=== PATIENT | female | born 1980 | race Hispanic/Latino ===

== ENCOUNTER 2019-07-26 11:19 | Outpatient (RCR) | payer OTHER, SELFPAY ==
[2019-07-26 12:44] LABS: Basophils Percent Auto 0.9 % (0.2-1.2); Eosinophils Absolute Auto 0.1 K/mm3 (0-0.3); Eosinophils Percent Auto 2.5 % (0-4.4); Hematocrit 38.7 % (37.0-47.0); Hemoglobin 12.6 g/dL (12.0-15.0); Immature Granulocyte Absolute 0.01 K/mm3 (0.00-0.031); Immature Granulocyte Percent A 0.2 % (0-0.5); Lymphocytes Absolute Auto 2.03 K/mm3 (0.9-3.2); Lymphocytes Percent Auto 46.5 % (18.3-44.2); Mean Corpuscular HGB Conc 32.6 g/dl (32-36); Mean Corpuscular Hemoglobin 29.6 pg (26-34); Mean Corpuscular Volume 90.8 fl (80-100); Mean Platelet Volume 11.8 fl (7.4-10.4); Monocytes Absolute Auto 0.6 K/mm3 (0.1-0.6); Monocytes Percent Auto 12.8 % (2.6-8.5); Neutrophils Absolute Auto 1.6 K/mm3 (1.3-6.7); Neutrophils Percent Auto 37.1 % (45.5-73.1); Platelet Count Result 219 k/mm3 (150-375); Red Blood Count 4.26 M/mm3 (4.2-5.4); White Blood Count 4.4 K/mm3 (4.5-10.0)
== END 2019-10-24 23:59 | disposition home or self-care (01) ==
LOC: ANHLAB 11:19
PROVIDERS: Visit Provider Obstetrics & Gynecology Gynecology
DX: D50.9 Iron deficiency anemia, unspecified (principal)
CPT/HCPCS: 36415; 85025

== ENCOUNTER 2020-02-28 01:11 | Outpatient (CLI) | payer OTHER, SELFPAY ==
[2020-02-28 19:01] LABS: SARS-CoV-2 RNA PCR Negative
== END 2020-02-28 01:12 | disposition home or self-care (01) ==
LOC: ANHCOVIDDT 01:12
PROVIDERS: PCP Physician Assistant; Visit Provider Surgery
DX: Z01.818 Encounter for other preprocedural examination (principal); Z11.59 Encounter for screening for other viral diseases
CPT/HCPCS: 87635; C9803; U0003

== ENCOUNTER 2020-02-28 08:40 | Outpatient (CLI) | payer OTHER, SELFPAY ==
[2020-02-28 08:57] LABS: Hematocrit 40.9 % (37.0-47.0); Hemoglobin 14.3 g/dL (12.0-15.0)
[2020-02-28 09:14] LABS: Alanine Aminotransferase 13 U/L (4-35); Albumin Level 4.4 g/dL (3.5-5.1); Alkaline Phosphatase 63 U/L (38-126); Amylase 186 U/L (30-110); Aspartate Amino Transferase 27 U/L (14-36); Bilirubin,Total 0.3 mg/dL (0.2-1.3); Blood Urea Nitrogen 8 mg/dL (7-17); Carbon Dioxide 29 mmol/L (22-30); Chloride 102 mmol/L (98-107); Estimated Glomerular Filt Rate > 60; Glucose 92 mg/dL (65-105); Lipase 113 U/L (23-300); Potassium 4.5 mmol/L (3.4-5.0); Sodium 138 mmol/L (137-145)
== END 2020-02-28 08:41 | disposition home or self-care (01) ==
PROVIDERS: Anesthesiology; PCP Physician Assistant; Visit Provider Surgery
DX: Z01.818 Encounter for other preprocedural examination (principal); K80.20 Calculus of gallbladder without cholecystitis without obstruction; Z86.2 Personal history of diseases of the blood and blood-forming organs and certain disorders involving the immune mechanism
CPT/HCPCS: 36415; 80053; 82150; 82248; 83690; 85014; 85018; 86850; 86900; 86901; 87635; C9803; U0003

== ENCOUNTER 2020-03-01 01:04 | Day surgery (SDC) | payer OTHER, SELFPAY ==
[2020-02-19 16:09] VITALS: BMI 21.4
[2020-03-01] VITALS (9 sets, daily range): BP systolic 115–127; BP diastolic 58–82; PULSE 69–95; RESP 14–18; TEMP 36.6–36.9; O2SAT 97–100
[2020-03-01] MEDS: LACTATED RINGERS 1,000 ML 30 ML IV CONT ×2 (10:45→13:25)
[2020-03-01] MEDS: KETOROLAC 15 MG/ML VIAL (*BKC) IV PUSH (11:00)
--- NOTE | 2020-03-01 11:24 | PM.IMHP ---
H&P: HPI History of Present Illness Chief complaint: symptomatic cholelithiasis Narrative: Cecily Leonardo is a 39 year old female presents for lap benedict. She has had abdominal pain and u/s 1 year ago showed cholelithiasis. Review of Systems Review of Systems: All systems reviewed & are unremarkable except as noted in HPI and below Constitutional: Constitutional: Denies chills, Denies fever(s), Denies headache(s) and Denies weight loss Eyes: Eyes: Denies change in vision ENT: Denies dizziness, Denies headache(s), Denies neck mass and Denies throat swelling Cardiovascular: Cardiovascular: Denies chest pain, Denies lightheadedness and Denies dyspnea Respiratory: Respiratory: Denies cough, Denies dyspnea and Denies wheezing Gastrointestinal: Gastrointestinal: Denies abdominal pain, Denies change in bowel habits, Denies nausea and Denies vomiting Genitourinary: Genitourinary: Denies hematuria and Denies dysuria Musculoskeletal: Musculoskeletal: Reports as per HPI Integumentary/Breasts: Skin/Breast: Reports as per HPI Neurologic: Denies dizziness and Denies headache(s) Allergic/Immunologic: Allergic/Immunologic: Denies throat swelling and Denies wheezing PMF Past Medical History Medical History Diabetes GERD (gastroesophageal reflux disease) Thyroid disease Family History Family History Mother Hypertension Sibling Family history of thyroid problem Other Family history of allergic disorder Family history of anemia Social History Social History Smoking status: Never smoker Second hand tobacco smoke exposure: No Alcohol intake: current Alcohol use details: occasional Substance use: never Living arrangements: with family Additional occupation/education comments: stay at home mom Spiritual care concerns: No Meds Home Medications and Allergies Home Medications Medication Instructions Recorded Confirmed Type levothyroxine 50 mcg tablet 50 mcg PO DAILY 09/27/19 03/01/20 History omeprazole 40 mg capsule,delayed 40 mg PO DAILY 01/09/20 03/01/20 History release ranitidine HCl 150 mg tablet 150 mg PO DAILY 01/09/20 03/01/20 History norethindrone-e.estradiol-iron 1 tablet PO DAILY 02/19/20 03/01/20 History [Aurovela 24 Fe] Allergies Allergy/AdvReac Type Severity Reaction Status Date / Time No Known Allergies Allergy Verified 03/01/20 11:16 Vital Signs Vital Signs - 24 hr 03/01/20 11:18 Temperature 36.9 C Pulse Rate 95 Respiratory Rate 18 Blood Pressure 127/82 Pulse Oximetry 100 Exam Const: General: no acute distress and alert Orientation/consciousness: patient oriented x3 HENMT: Head: normocephalic and atraumatic Ears: hearing grossly normal bilaterally General nose exam: Normal nares present Mouth: Yes Normal oral and palatal mucosa present Eyes: Periorbital: periorbital findings normal Sclera: sclerae normal EOM: EOMs intact bilaterally Neck: Neck: normal visual inspection, no lymphadenopathy and trachea midline Chest: Chest palpation & inspection: normal inspection of the chest Resp: Effort & Inspection: normal respiratory effort Auscultation: clear to auscultation bilaterally Cardio: Jugular venous distension: no JVD Rate: regular rate Rhythm: regular rhythm Heart sounds: S1 normal heart sound present and S2 normal heart sound present Peripheral pulses: Peripheral pulses 2+ throughout GI: Inspection: normal to inspection GI Palp: Yes Soft to palpation, No Tenderness to palpation present (GI), No Guarding due to palpation present (GI) and No Rebound tenderness present Percussion: Yes normal to percussion Auscultation: normal bowel sounds : General: Yes no CVA tenderness Back/Spine/Pelvis: Back: no CVA tenderness Neuro: General: patient oriented x3, no foc
--- NOTE | 2020-03-01 11:38 | WPDANESEPPF ---
Anes - Initial Pre Proc Eval Procedure: Operation Date: 03/01/20 12:00 Proposed Procedures p Laparoscopic Cholecystectomy, Possible Open - Jordi Garcia DO Date/Time: 03/01/20 11:38 Surgeon: Jordi Garcia DO Pre Op Diagnosis: symptomatic cholelithiasis Patient Data Age: 39 Gender: F Height: 5 ft 4 in Weight: 57 kg Last Vital Signs Temp 98.4 F 03/01/20 11:18 Pulse 95 03/01/20 11:18 Resp 18 03/01/20 11:18 BP 127/82 03/01/20 11:18 Pulse Ox 100 03/01/20 11:18 Allergies Allergy/AdvReac Type Severity Reaction Status Date / Time No Known Allergies Allergy Verified 03/01/20 11:16 Home Medications Medication Instructions Recorded Confirmed Type levothyroxine 50 mcg tablet 50 mcg PO DAILY 09/27/19 02/19/20 History omeprazole 40 mg capsule,delayed 40 mg PO DAILY 01/09/20 02/19/20 History release ranitidine HCl 150 mg tablet 150 mg PO DAILY 01/09/20 02/19/20 History norethindrone-e.estradiol-iron 1 tablet PO DAILY 02/19/20 02/19/20 History [Aurovela 24 Fe] Patient hx anesthesia problems: none Family hx anesthesia problems: none PMFSH Past Medical History Medical History Diabetes GERD (gastroesophageal reflux disease) Thyroid disease Family History Family History Mother Hypertension Sibling Family history of thyroid problem Other Family history of allergic disorder Family history of anemia Social History Social History Smoking status: Never smoker Second hand tobacco smoke exposure: No Alcohol intake: current Alcohol use details: occasional Substance use: never Living arrangements: with family Additional occupation/education comments: stay at home mom Spiritual care concerns: No Anes - Eval Final PreProcedure Day of Procedure 03/01/20 11:38 Patient weight: normal Heart: regular rate and rhythm Lungs: clear to auscultation Airway: Mallampati scale class II Neurological: alert and oriented Last oral intake: >/= 8 hours ASA classification: II Emergent: no Anesthetic plan: proceed Anesthesia type and monitoring: general ETT and standard monitoring Informed Consent: The patient's anesthetic plan and its attendant risks and benefits were discussed with the patient/family/POA. Questions were solicited and answers provided to the satisfaction of the patient/family/POA.
[2020-03-01] MEDS: ceFAZolin 2 GM/D5W 50 ML 2 GM/50 ML BAG IVPB (12:27)
[2020-03-01] MEDS: BUPIVACAINE/EPINEPHRINE 0.5% 30 ML VIAL INFILTRATE (12:54)
--- NOTE | 2020-03-01 13:10 | PM.PROC ---
Procedure Note - Detailed Date of procedure: 03/01/20 Pre-op diagnosis: symptomatic cholelithiasis Post-op diagnosis: same Procedure performed: Laparoscopic Cholecystectomy Description of procedure: Procedure as well as risks, benefits, and alternatives were discussed with patient. Written consent was obtained and placed in chart prior to procedure. The patient was brought back to surgical suite. Patient was placed in supine position on operating table. Time-out was done to confirm patient and procedure. Patient was then intubated by the anesthesia department. Abdomen was prepped and draped in sterile fashion using chlorhexidine prep. 0.5% bupivacaine with epinephrine was infiltrated at each site of incision. An 11 millimeter vertical incision was made at the inferior portion of the umbilicus using a 15 blade scalpel. Blunt dissection was carried down to the linea alba. The linea alba was then incised using a 15 blade scalpel. The peritoneum was then bluntly entered. An 11 millimeter trocar was inserted and cabon dioxied insuflation was used to create a pneumoperitoneum. The camera was inserted and the abdomen was inspected. The patient was placed in reverse Trendelenberg position and rotated slightly to the left. A 5 millimeter incision was made in the epigastric region, and a 5 millimeter trocar was inserted under direct visualization. Two 5 millimeter incisions were made in the right upper quadrant, and two 5 millimeter trocars were inserted under direct visualization. The gallbladder was identified and grasped at the fundus and retracted superiorly. It was then grasped at the infundibulum retracted laterally. Careful dissection around the neck of the gallbladder was performed using blunt dissection with a [place] grasper and hook electrocautery. The cystic duct was identified, and a window was created behind it. The cystic artery was also identified and a window was created behind it. The critical view of safety was identified, visualizing the cystic duct running directly into the neck of the gallbladder, and the cystic artery running directly into the wall of the gallbladder. A 5 millimeter clip pump house operator was then used to place 2 clips proximally and 1 clip distally on both the cystic duct and cystic artery. They were then both transected using endoscopic scissors. Once safely away from the eugenie hepatitis, the gallbladder was dissected free from the liver bed using hook electrocautery. Hemostasis was achieved along the way. The gallbladder was removed completely and then removed through the umbilical port. The liver bed was then inspected. Hemostasis appeared adequate, and our clips appeared secure. The area was gently irrigated with sterile saline. No other abnormalities were seen. The patient was flattened out in bed, and 1 final inspection was made around the abdominal cavity. The ports were then removed under direct visualization, the camera was removed, and the pneumoperitoneum was released. The fascia of the umbilical incision was approximated using an 0 Vicryl [id number] suture. The skin of the incisions was approximated using 4-0 Monocryl subcuticular sutures. Exofin glue was applied on top. The patient was then awakened from anesthesia, extubated, and transferred to recovery. Anesthesia: GETA and local (0.5% bupivicaine with epinephrine) Surgeon: Jordi Garcia DO Estimated blood loss (mL): 5 Packing: Yes Complications: No immediate complications Condition: stable Disposition: same day Findings: Laparoscopic cholecystectomy was performed. Patient was found to have a few pericholecystic adhesions and multiple medium-sized gallstones were identified within the gallbladder. The cystic duct appeared normal in size and no other abnormalities were noted. The gallbladder was removed and sent to the lab for pathology.
== END 2020-03-01 15:58 | disposition home or self-care (01) ==
PROVIDERS: PCP Physician Assistant; Visit Provider Surgery
PROC: 0FT44ZZ Resection of Gallbladder, Percutaneous Endoscopic Approach (ICD-10-PCS; CPT 47562; principal; 2020-03-01 12:00)
DX: K80.10 Calculus of gallbladder with chronic cholecystitis without obstruction (principal); E11.9 Type 2 diabetes mellitus without complications; K21.9 Gastro-esophageal reflux disease without esophagitis; E07.9 Disorder of thyroid, unspecified
CPT/HCPCS: 47562; 88304; A9270; J0131; J0690; J1100; J1885; J2250; J2405; J2704; J3010; J7030; J7120

== ENCOUNTER 2020-07-20 06:52 | Outpatient (NON) | payer OTHER, SELFPAY ==
[2020-07-20 19:14] LABS: SARS-CoV-2 RNA PCR Negative
== END 2020-07-20 06:53 ==
PROVIDERS: PCP Physician Assistant
DX: Z20.828 Contact with and (suspected) exposure to other viral communicable diseases (principal); R09.89 Other specified symptoms and signs involving the circulatory and respiratory systems
CPT/HCPCS: 87635; C9803; U0003

== ENCOUNTER 2020-09-20 06:51 | Outpatient (NON) | payer OTHER, SELFPAY ==
[2020-09-20 22:59] LABS: SARS-CoV-2 RNA PCR Negative
== END 2020-09-20 06:52 ==
PROVIDERS: PCP Physician Assistant
DX: R68.89 Other general symptoms and signs (principal); Z20.822 Contact with and (suspected) exposure to COVID-19
CPT/HCPCS: C9803; U0003; U0005

== ENCOUNTER 2020-10-30 22:10 | Observation (INO) | payer OTHER, SELFPAY ==
--- NOTE | ~2020-10-30 | XR_ITS ---
EXAMINATION: XR fluoroscopy no charge EXAM DATE: 10/31/2020 15:38 INDICATION: Left ureteroscopy. TECHNIQUE: Fluoroscopy used during left ureteroscopy performed by Dr. Donny Forbes MD. Radiol ogist was not present for the imaging or procedure. The DAP for this procedure was 84 radcm2. FINDINGS: Left ureter was cannulated. Correlate with procedure note. IMPRESSION: Fluoroscopy used during left ureteroscopy. Reviewed, dictated and finalized at location A.
--- NOTE | ~2020-10-30 | CT_ITS ---
EXAMINATION: CT abdomen pelvis w con DATE: 10/31/2020 01:23 INDICATION: Left lower quadrant abdominal pain. TECHNIQUE: Computed tomography (CT) of the abdomen and pelvis was performed with 100 mL Omnipaque 350 intravenous contrast. Automated exposure control and iterative reconstruction technique were employe d. The dose-length product was 298.68 mGy-cm. COMPARISON: Left hip radiographs 04/22/2015 FINDINGS: The visualized portions of the lung bases are clear without pneumonia or pleural effusion. The heart size is normal. No pericardial effusion. The liver is normal. There are changes of cholecys tectomy. Calcifications in the spleen are consistent with old granulomatous disease. The pancreas, ad renal glands, and kidneys are normal. There is no urolithiasis. Again seen is a phlebolith in left pe lvis. There are no dilated loops of bowel. The appendix is normal. There are no pathologically enlarg ed lymph nodes. There is no free intraperitoneal fluid. The bones are unremarkable. IMPRESSION: 1. No etiology for the patient's symptoms. I discussed this result with Dr. Forbes. Reviewed, dictated and finalized at location A. IMPRESSION: 1. No etiology for the patient's symptoms. I discussed this result with Dr. Tacos campo.
--- NOTE | ~2020-10-30 | XR_ITS ---
XR chest 1V DATE: 10/30/2020 23:02 INDICATION: Chest, origins range, body aches for 2 months. Urinary tract infection. TECHNIQUE: PA chest COMPARISON: 06/03/2005 PA and lateral chest FINDINGS: Normal heart size. No hilar or mediastinal enlargement. No pulmonary infiltrate or consolidation, pleural effusion or pulmonary vascular congestion or pneumo thorax. Included skeletal structures are unremarkable. IMPRESSION: Negative Reviewed, dictated and finalized at location A. IMPRESSION: Negative
[2020-10-30 22:23] VITALS: BP 121/79; PULSE 128; RESP 20; TEMP 39; O2SAT 99
--- NOTE | 2020-10-30 22:39 | ECG_ITS ---
Measurements Intervals [place] Rate: 112 P: 57 MS: 137 QRS: 54 QRSD: 90 T: 6 QT: 273 QTc: 373 Interpretive Statements SINUS TACHYCARDIA NONSPECIFIC T-WAVE ABNORMALITY- INFERIOR LEADS ABNORMAL ECG Electronically Signed On 10-31-2020 7:17:57 CDT by Olivier Olmedo D.O.
[2020-10-30 23:33] LABS: Basophils Percent Auto 0.3 % (0.2-1.2); Eosinophils Absolute Auto 0.1 K/mm3 (0-0.3); Eosinophils Percent Auto 1.6 % (0-4.4); Hematocrit 39.3 % (37.0-47.0); Hemoglobin 13.9 g/dL (12.0-15.0); Immature Granulocyte Absolute 0.01 K/mm3 (0.00-0.031); Immature Granulocyte Percent A 0.3 % (0-0.5); Lymphocytes Absolute Auto 0.28 K/mm3 (0.9-3.2); Lymphocytes Percent Auto 9.2 % (18.3-44.2); Mean Corpuscular HGB Conc 35.4 g/dl (32-36); Mean Corpuscular Hemoglobin 32.1 pg (26-34); Mean Corpuscular Volume 90.8 fl (80-100); Mean Platelet Volume 10.7 fl (7.4-10.4); Monocytes Absolute Auto 0.4 K/mm3 (0.1-0.6); Monocytes Percent Auto 12.2 % (2.6-8.5); Neutrophils Absolute Auto 2.3 K/mm3 (1.3-6.7); Neutrophils Percent Auto 76.4 % (45.5-73.1); Platelet Count Result 152 k/mm3 (150-375); Red Blood Count 4.33 M/mm3 (4.2-5.4); Red Cell Distribution Width 11.2 % (11.5-14.5)
[2020-10-30 23:36] VITALS: BP 124/65; PULSE 112; PULSE 116; RESP 28; TEMP 39.4; O2SAT 100
--- NOTE | 2020-10-30 23:36 | ED.GENADULT ---
HPI - General Adult General Chief complaint: Unspecified Stated complaint: Rash, body aches, fever?, covid-19 vaccine wednesday Time Seen by Provider: 10/30/20 23:29 Source: patient Mode of arrival: ambulatory Limitations: no limitations History of Present Illness HPI narrative: Patient is a 39-year-old female who presents with rash and fever chills body aches for the last day patient notes that she was switched to Bactrim for urinary tract infection the last 4 days patient has been having urinary symptoms for the last month and is being scheduled to see a urologist. Patient also notes she has gone off of her control and started having vaginal bleeding in the last day going to roughly a pad per day with history of irregular periods. Patient has been taking Benadryl and Tylenol for symptoms with some improvement. Patient on arrival denies any vomiting diarrhea rectal bleeding or melena. Patient notes nonproductive cough that is of new as well denies any sick contacts Related Data Home Medications Medication Instructions Recorded Confirmed levothyroxine 50 mcg tablet 50 mcg PO DAILY 09/27/19 03/15/20 omeprazole 40 mg capsule,delayed 40 mg PO DAILY 01/09/20 03/15/20 release ranitidine HCl 150 mg tablet 150 mg PO DAILY 01/09/20 03/15/20 norethindrone-e.estradiol-iron 1 tablet PO DAILY 02/19/20 03/15/20 [Aurovela 24 Fe] Allergies Allergy/AdvReac Type Severity Reaction Status Date / Time No Known Allergies Allergy Verified 03/01/20 11:16 Review of Systems Review of Systems: All systems reviewed & are unremarkable except as noted in HPI and below PMFSH Past Medical History Medical History (Updated 10/31/20 @ 01:58 by Timbo Charles PA-C) Diabetes pt denies this problem GERD (gastroesophageal reflux disease) Thyroid disease Surgical History Surgical History Hx laparoscopic cholecystectomy Family History Family History Mother Hypertension Sibling Family history of thyroid problem Other Family history of allergic disorder Family history of anemia Social History Social History Smoking status: Never smoker Second hand tobacco smoke exposure: No Alcohol intake: current Substance use: never Additional occupation/education comments: stay at home mom Gender identity (if verbalized by the patient): Female Spiritual care concerns: No Exam Narrative: Exam Narrative: GENERAL: Well-appearing, well-nourished, and in no acute distress. HEAD: Normocephalic, atraumatic. EYES: PERRLA and EOMI. ENT: Nares clear, no rhinorrhea or epistaxis. Mucous membranes moist. No angioedema in the oropharynx NECK: Supple. No adenopathy or masses. No stridor CHEST: Clear to auscultation. No respiratory distress. No wheezes rales or rhonchi HEART: Regular rate and rhythm. No murmur heard. Normal peripheral pulses. ABDOMEN: Soft, nontender, nondistended EXTREMITIES: Normal range of motion. No edema. SKIN: Warm, dry, diffuse macular papular rash NEURO: No focal deficits. Alert and oriented x3. PSYCH: Normal mood and affect. Course Course Emergency Course: Patient presented with fever and urinary symptoms for the last month found to have 3 mm stone in the distal left ureter near the UVJ resulting in minimal hydroureter of the distal ureter. Patient has been hydrated and given antibiotics in the emergency department noting that she is feeling better. Patient will be brought in the hospital given her sepsis presentation for urological consultation admitted to the hospitalist service. Consultations Consultation #1: Discussed case with urologist Dr. Kong who admits that the patient should be admitted to the hospitalist service with urology as a consult would like broad-spectrum antibiotics to be used given the different antibiotics over t
[2020-10-30 23:43] LABS: Lipase 118 U/L (23-300)
[2020-10-30 23:47] LABS: Alanine Aminotransferase 31 U/L (4-35); Albumin Level 4.5 g/dL (3.5-5.1); Alkaline Phosphatase 69 U/L (38-126); Anion Gap 8 mmol/L (8-16); Aspartate Amino Transferase 48 U/L (14-36); Bilirubin,Total 0.3 mg/dL (0.2-1.3); Blood Urea Nitrogen 7 mg/dL (7-17); CRP 1.2 mg/dL (<1.0); Calcium 9.3 mg/dL (8.4-10.2); Carbon Dioxide 28 mmol/L (22-30); Chloride 98 mmol/L (98-107); Estimated CRCL calculation 71 ml/min; Estimated Glomerular Filt Rate > 60; Glucose 106 mg/dL (65-105); Potassium 3.8 mmol/L (3.4-5.0); Sodium 134 mmol/L (137-145)
[2020-10-30 23:49] LABS: Lactic Acid Reflex 1.2 mmol/L (0.7-2.1)
[2020-10-30 23:49] LABS: Partial Thromboplastin Time 29.8 SECONDS (22.3-36.8)
[2020-10-31] VITALS (13 sets, daily range): BP systolic 80–122; BP diastolic 43–78; PULSE 79–119; RESP 12–26; TEMP 36.5–38.4; O2SAT 99–100; BMI 22.4
[2020-10-31] MEDS: diphenhydrAMINE HCl INJ 50 MG/ML VIAL 25 MG IV PUSH ×4 (00:17→21:11)
[2020-10-31] MEDS: FAMOTIDINE 20 MG/2 ML VIAL IV PUSH ×3 (00:17→14:55)
[2020-10-31 00:50] LABS: Add Urine Microscopic? YES; Appearance Urine Clear (Clear); Bilirubin Urine Negative (Negative); Blood Urine 2+ (Negative); Color Urine Straw (Yellow); Glucose Urine UA Negative (Negative); Ketones Urine Trace mg/dL (Negative); Leukocyte Esterase Ur Negative LEU/UL (Negative); Mucus Urine Rare /lpf; Nitrate Urine Negative (Negative); Protein Urine Negative (Negative); RBC Urine 21-50 /hpf (0-2); Specific Grav Ur 1.009 (1.001-1.035); Squamous Epithelial Cell Urine Rare /hpf (Few); Urobilinogen Urine Negative mg/dL (<2.0); WBC Urine 0-3 /hpf
[2020-10-31] MEDS: IBUPROFEN IV 800 MG/200 ML 800 MG/200 ML BAG 400 MG IVPB (01:08)
[2020-10-31] MEDS: SODIUM CHLORIDE 0.9% IV 1,000 ML 999 ML IV CONT ×3 (01:08→02:16)
--- NOTE | 2020-10-31 03:19 | ADMGEN ---
This patient, Cecily Leonardo, was admitted to 2 Medical Room 249-01. Patient/family oriented to hospital policies and general routines including ID bracelet, bed and alarms, visiting hours, pain management, procedures, bathroom and other care routines, personal items, smoking policy, room service/diet, and visiting hours. Information on how to activate the Rapid Response Team has been discussed. Patient/Family are encouraged to report perceived risks to care and to ask questions if they do not understand what they are told or what they should do.
[2020-10-31] MEDS: LACTATED RINGERS 1,000 ML 75 ML IV CONT ×2 (03:20→22:21)
--- NOTE | 2020-10-31 06:39 | WPDURCON ---
Assessment and Plan Assessment and plan (1) Recurrent UTI: Code(s): N39.0 - Urinary tract infection, site not specified Status: Acute (2) Left ureteral stone: Code(s): N20.1 - Calculus of ureter Status: Acute Assessment and Plan: Cystoscopy, left ureteroscopy with stone extraction and possible stent placement Urology Consult Note HPI Date Seen: 10/31/20 Requesting Physician: Geoff Barlow MD Primary Care Provider: Rosie Damon, PA Consult Narrative Narrative: Cecily Leonardo is a 39 year old female the prior history of urolithiasis or other urological problems. She presents to the ER with a several day history persistent irritable voiding symptoms and intermittent fever. Reportedly, she has been treated for several urinary tract infections but continues to have voiding symptoms. Imaging in the ER reveals a 3 mm minimally obstructing left distal ureteral calculus. Review of Systems Cardiovascular: Cardiovascular: Denies chest pain, Denies lightheadedness, Denies palpitations and Denies dyspnea Respiratory: Respiratory: Denies dyspnea Gastrointestinal: Gastrointestinal: Denies diarrhea, Denies nausea and Denies vomiting Genitourinary: Genitourinary: Reports hematuria and Reports dysuria Endocrine: Endocrine: Denies palpitations PMFSH Past Medical History Medical History (Updated 10/31/20 @ 06:43 by Donny Forbes MD) Diabetes pt denies this problem GERD (gastroesophageal reflux disease) Thyroid disease Surgical History Surgical History Hx laparoscopic cholecystectomy Family History Family History Mother Hypertension Sibling Family history of thyroid problem Other Family history of allergic disorder Family history of anemia Social History Social History Smoking status: Never smoker Second hand tobacco smoke exposure: No Alcohol intake: never Substance use: never Additional occupation/education comments: stay at home mom Gender identity (if verbalized by the patient): Female Spiritual care concerns: No Meds Home Medications and Allergies Home Medications Medication Instructions Recorded Confirmed Type levothyroxine 50 mcg tablet 50 mcg PO DAILY 09/27/19 10/31/20 History omeprazole 40 mg capsule,delayed 40 mg PO DAILY 01/09/20 10/31/20 History release PNV,calcium 46-tgyo-wckig acid 1 tablet PO DAILY 10/31/20 10/31/20 History [ Vitamin Plus Low Iron] diphenhydramine HCl [Benadryl] 25 mg PO Q6H PRN 10/31/20 10/31/20 History sulfamethoxazole-trimethoprim 1 tablet PO BID 10/31/20 10/31/20 History Allergies Allergy/AdvReac Type Severity Reaction Status Date / Time No Known Allergies Allergy Verified 03/01/20 11:16 Vital Signs Vital Signs - 24 hr 10/30/20 22:23 10/30/20 23:36 10/31/20 00:51 Temperature 102.2 F H 103.0 F H 101.1 F H Pulse Rate 128 H 116 H 119 H Respiratory Rate 20 28 H 26 H Blood Pressure 121/79 124/65 121/78 Pulse Oximetry 99 100 100 10/31/20 01:08 10/31/20 02:16 10/31/20 03:36 Temperature 101.1 F H 98.6 F 98.9 F Pulse Rate 113 H 99 Respiratory Rate 19 16 Blood Pressure 122/78 112/63 Pulse Oximetry 100 99 10/31/20 05:50 Temperature 98.2 F Pulse Rate 91 Respiratory Rate 16 Blood Pressure 106/63 Pulse Oximetry 99 Results Labs CBC & Chem 7: 10/30/20 23:25 10/30/20 23:25 Labs: Short CBC 10/30/20 Range/Units 23:25 WBC 3.0 L (4.5-10.0) K/mm3 Hgb 13.9 (12.0-15.0) g/dL Hct 39.3 (37.0-47.0) % Plt Count 152 (150-375) k/mm3 BMP 10/30/20 23:25 Sodium 134 L Potassium 3.8 Chloride 98 Carbon Dioxide 28 BUN 7 Creatinine 0.80 Glucose 106 H Calcium 9.3 Liver Function 10/30/20 Range/Units 23:25 Total Bilirubin 0.3 (0.2
--- NOTE | 2020-10-31 06:44 | WPDHPUPDATE1 ---
History and Physical Update Update Date/Time: 10/31/20 06:44 History and Physical has been reviewed, including an updated exam of the patient. There are NO changes in the patient's condition. Risks, benefits, and alternatives have been discussed and questions answered. Patient agrees to proceed with procedure.
--- NOTE | 2020-10-31 09:59 | PM.IMHP ---
H&P: HPI History of Present Illness Date/Time: 10/31/20 09:59 Chief Complaint: Fever, Flank pain Narrative: This is a 39 year old woman with history of hypothyroidism, GERD who presented to the ER with complaints of fever, rash, lip in eye swelling which began prior to arrival. The patient has been having bilateral flank pain and dysuria which have been intermittent since August. On August 30, 2020 she had a positive urine culture from her primary care office growing Enterococcus faecalis greater than 100,000 and she was given 3 days of Macrobid which was sensitive. She stated her symptoms resolved after about a week then returned and she was placed on 3 more days of antibiotics. She did reports continued symptoms and had another urinalysis on 10/15/2020 which showed growth of Proteus mirabilis that was resistant to Macrobid. At that time she was placed on Bactrim antibiotics for 7 days. She reports taking about 5 days of the antibiotics and developed fevers, diffuse body rash, swelling to her lips and around her eyes. She decided to come into the emergency room for further evaluation. At this time she continues have a rash that is intermittently improved with Benadryl, then once the Benadryl wears off it becomes itchy again. She does report frequent urination, denies any dysuria. Still has some bilateral flank pains. She denies any chest pain, shortness of breath, cough, sick contacts, leg swelling, calf pain, nausea, vomiting, lightheadedness, dizziness or any other symptoms at this time. She also reports stopping her control about 3 weeks ago when she is on her menstrual cycle right now which is the 1st when she has had in a long time. She does report heavy menstrual cycle for the last 2 days as well as abdominal cramping which she associates from being on her menstrual cycle. She denies any more fevers today. Code Status- Full Code PCP- Rosie Damon PA-C Review of Systems Review of Systems: All systems reviewed & are unremarkable except as noted in HPI and below PMFSH Past Medical History Medical History (Updated 10/31/20 @ 17:36 by Christine Navarro PA-C) GERD (gastroesophageal reflux disease) Hypothyroidism Surgical History Surgical History Hx laparoscopic cholecystectomy Family History Family History Mother Hypertension Sibling Family history of thyroid problem Other Family history of allergic disorder Family history of anemia Social History Social History (Updated 10/31/20 @ 17:32 by Christine Navarro PA-C) Smoking status: Never smoker Second hand tobacco smoke exposure: No Alcohol intake: never Substance use: never Living arrangements: with family Additional occupation/education comments: stay at home mom Gender identity (if verbalized by the patient): Female Spiritual care concerns: No Meds Home Medications and Allergies Home Medications Medication Instructions Recorded Confirmed Type levothyroxine 50 mcg tablet 50 mcg PO DAILY 09/27/19 10/31/20 History omeprazole 40 mg capsule,delayed 40 mg PO DAILY 01/09/20 10/31/20 History release PNV,calcium [id number] acid 1 tablet PO DAILY 10/31/20 10/31/20 History [ Vitamin Plus Low Iron] diphenhydramine HCl [Benadryl] 25 mg PO Q6H PRN 10/31/20 10/31/20 History sulfamethoxazole-trimethoprim 1 tablet PO BID 10/31/20 10/31/20 History Allergies Allergy/AdvReac Type Severity Reaction Status Date / Time No Known Allergies Allergy Verified 03/01/20 11:16 Vital Signs Vital Signs - 24 hr 10/30/20 22:23 10/30/20 23:36 10/31/20 00:51 Temperature 102.2 F H 103.0 F H 101.1 F H Pulse Rate 128 H 116 H 119 H Respiratory Rate 20 28 H 26 H Blood Pressure 121/79 124/65 121/78 Pulse Oximetry 99 100 100 10/31/20 01:08 10/31/20 02:16 10/31/20 03:36 Temperature 101.1 F H 98.6 F 98.9 F Pulse
[2020-10-31] MEDS: LEVOTHYROXINE SODIUM 50 MCG TABLET PO (12:58)
--- NOTE | 2020-10-31 14:15 | PC.NURSE ---
Patient to OR per stretcher.
--- NOTE | 2020-10-31 14:21 | WPDANESEPPF ---
Anes - Initial Pre Proc Eval Procedure: Operation Date: 10/31/20 15:45 Proposed Procedures p Cystoscopy,Left Ureteroscopy,Stone Extraction,Possible Stent Placement - Donny Forbes MD Date/Time: 10/31/20 14:21 Surgeon: Christine Navarro PA-C Pre Op Diagnosis: Urolithiasis, medication reaction, Patient Data Age: 39 Gender: F Height: 1.63 m Weight: 59.1 kg Last Vital Signs Temp 36.8 C 10/31/20 10:03 Pulse 98 10/31/20 10:03 Resp 16 10/31/20 10:03 BP 118/70 10/31/20 10:03 Pulse Ox 100 10/31/20 10:03 Allergies Allergy/AdvReac Type Severity Reaction Status Date / Time No Known Allergies Allergy Verified 03/01/20 11:16 Home Medications Medication Instructions Recorded Confirmed Type levothyroxine 50 mcg tablet 50 mcg PO DAILY 09/27/19 10/31/20 History omeprazole 40 mg capsule,delayed 40 mg PO DAILY 01/09/20 10/31/20 History release PNV,calcium [id number] acid 1 tablet PO DAILY 10/31/20 10/31/20 History [ Vitamin Plus Low Iron] diphenhydramine HCl [Benadryl] 25 mg PO Q6H PRN 10/31/20 10/31/20 History sulfamethoxazole-trimethoprim 1 tablet PO BID 10/31/20 10/31/20 History Laboratory Tests 10/30/20 10/30/20 10/30/20 23:25 23:25 23:25 WBC 3.0 K/mm3 L K/mm3 (4.5-10.0) RBC 4.33 M/mm3 M/mm3 (4.2-5.4) Hgb 13.9 g/dL g/dL (12.0-15.0) Hct 39.3 % % (37.0-47.0) MCV 90.8 fl fl (80-100) MCH 32.1 pg pg (26-34) MCHC 35.4 g/dl g/dl (32-36) RDW 11.2 % L % (11.5-14.5) Plt Count 152 k/mm3 k/mm3 (150-375) MPV 10.7 fl H fl (7.4-10.4) Immature Gran % (Auto) 0.3 % % (0-0.5) Neut % (Auto) 76.4 % H % (45.5-73.1) Lymph % (Auto) 9.2 % L % (18.3-44.2) [place] % (Auto) 12.2 % H % (2.6-8.5) Eos % (Auto) 1.6 % % (0-4.4) Baso % (Auto) 0.3 % % (0.2-1.2) Lymph # (Auto) 0.28 K/mm3 L K/mm3 (0.9-3.2) [place] # (Auto) 0.4 K/mm3 K/mm3 (0.1-0.6) Eos # (Auto) 0.1 K/mm3 K/mm3 (0-0.3) Baso # (Auto) 0.0 K/mm3 K/mm3 (0.0-0.1) Abs Immat Gran (auto) 0.01 K/mm3 K/mm3 (0.00-0.031) Absolute Neuts (auto) 2.3 K/mm3 K/mm3 (1.3-6.7) Absolute Nucleated RBC 0.0 K/mm3 K/mm3 (0.0-0.012) Nucleated RBC % 0.0 % % (0.0-0.2) PT INR APTT Sodium 134 mmol/L L mmol/L (137-145) Potassium 3.8 mmol/L mmol/L (3.4-5.0) Chloride 98 mmol/L mmol/L (98-107) Carbon Dioxide 28 mmol/L mmol/L (22-30) Anion Gap 8 mmol/L mmol/L (8-16) BUN 7 mg/dL mg/dL (7-17) Creatinine 0.80 mg/dL mg/dL (0.7-1.0) Estim Creat Clear Calc 71 ml/min ml/min Estimated GFR > 60 (59 - ) Glucose 106 mg/dL H mg/dL (65-105) Lactic Acid 1.2 mmol/L mmol/L (0.7-2.1) Calcium 9.3 mg/dL mg/dL (8.4-10.2) Total Bilirubin 0.3 mg/dL mg/dL (0.2-1.3) AST 48 U/L H U/L (14-36) ALT 31 U/L U/L (4-35) Alkaline Phosphatase 69 U/L U/L (38-126) C-Reactive Protein 1.2 mg/dL H mg/dL (<1.0) Total Protein 8.0 g/dL g/dL (6.3-8.2) Albumin 4.5 g/dL g/dL (3.5-5.1) Lipase Urine Color Urine Appearance Urine pH Ur Specific [place] Urine Protein Urine Glucose (UA) Urine Ketones Ur Blood (Man) Urine Nitrate Urine Bilirubin Urine Urobilinogen Leukocyte Esterase Rfl Urine RBC Urine WBC Ur Squamous Epith Cells Urine Mucus 10/30/20 10/30/20 10/31/20 23:26 23:26 00:13 WBC RBC Hgb Hct MCV MCH
[2020-10-31] MEDS: LACTATED RINGERS 1,000 ML 30 ML IV CONT (15:00)
[2020-10-31] MEDS: ceFAZolin 2 GM/D5W 50 ML 2 GM/50 ML BAG IVPB (15:14)
[2020-10-31] MEDS: LIDOCAINE HCL 2% GEL UROJET 10 ML PKG MUCOUS MEM (15:26)
--- NOTE | 2020-10-31 15:55 | PM.PROC ---
Procedure Note - Detailed Date of procedure: 10/31/20 Pre-op diagnosis: Urolithiasis, recurrent UTI Post-op diagnosis: other (Recurrent UTI - no ureteral stone) Procedure performed: Cystoscopy, left ureteroscopy Description of procedure: Patient is brought to the operatory room she is prepped and draped in routine sterile fashion while in a dorsal lithotomy position. Cystoscopy is undertaken with a 19 F rigid cystoscope. Urethra and bladder neck were endoscopically normal. Bladder mucosa shows minimal hyperemia without evidence of neoplasm. There is no intravesical foreign body. She has a single orthotopic ureteral orifice bilaterally. A 0.035 in glidewire was advanced in the left renal pelvis. Distal ureter was dilated with an 8 F 10 F dilator. Ureteroscopy was undertaken with a short tapered semi-rigid ureteral scope. There is no ureteral stones. The calcification noted been identified on imaging studies is seen to be outside the ureter on fluoroscopy. At this point scopes and wires removed patient was taken recovery in good condition. Anesthesia: MAC Surgeon: Donny Forbes MD Interior Design Faculty Member: None Drains: No Packing: No Pathology: none sent Complications: No immediate complications Condition: stable Disposition: PACU
--- NOTE | 2020-10-31 16:33 | PC.NURSE ---
Patient returned from OR.
--- NOTE | 2020-10-31 23:41 | PC.NURSE ---
Addendum entered by Abdoulaye Reid RN 11/01/20 00:12: Dr Mancia notified at this time of persistent tingling. No new orders received. Original Note: Pt c/o tingling sensation that started in her feet and is now in her LE and UE. Pt states it has been constant for about an hour. Pt denies any numbness or change in sensation of cold/heat. Pt was given Benadryl for itching 2 hours prior to c/o tingling, pt states she did not have this feeling after prior Benadryl admin. pt given first dose of Levaquin at 1600.
[2020-11-01] VITALS: BP 114/67; PULSE 87; RESP 16; TEMP 37.2; O2SAT 100
[2020-11-01 05:00] VITALS: BP 112/61; PULSE 87; RESP 16; TEMP 37; O2SAT 100
[2020-11-01 05:31] LABS: Basophils Percent Auto 0.5 % (0.2-1.2); Hematocrit 34.7 % (37.0-47.0); Hemoglobin 12.3 g/dL (12.0-15.0); Immature Granulocyte Absolute 0.01 K/mm3 (0.00-0.031); Immature Granulocyte Percent A 0.5 % (0-0.5); Lymphocytes Absolute Auto 0.85 K/mm3 (0.9-3.2); Lymphocytes Percent Auto 46.2 % (18.3-44.2); Mean Corpuscular HGB Conc 35.4 g/dl (32-36); Mean Corpuscular Hemoglobin 32.4 pg (26-34); Mean Corpuscular Volume 91.3 fl (80-100); Mean Platelet Volume 10.8 fl (7.4-10.4); Monocytes Absolute Auto 0.2 K/mm3 (0.1-0.6); Monocytes Percent Auto 12.5 % (2.6-8.5); Neutrophils Absolute Auto 0.7 K/mm3 (1.3-6.7); Neutrophils Percent Auto 40.3 % (45.5-73.1); Platelet Count Result 148 k/mm3 (150-375); Red Cell Distribution Width 11.5 % (11.5-14.5)
[2020-11-01 05:48] LABS: Alanine Aminotransferase 36 U/L (4-35); Albumin Level 3.7 g/dL (3.5-5.1); Alkaline Phosphatase 51 U/L (38-126); Anion Gap 6 mmol/L (8-16); Aspartate Amino Transferase 52 U/L (14-36); Bilirubin,Total 0.2 mg/dL (0.2-1.3); Blood Urea Nitrogen 7 mg/dL (7-17); CRP 2.2 mg/dL (<1.0); Calcium 8.5 mg/dL (8.4-10.2); Carbon Dioxide 25 mmol/L (22-30); Chloride 106 mmol/L (98-107); Estimated CRCL calculation 92 ml/min; Estimated Glomerular Filt Rate > 60; Glucose 91 mg/dL (65-105); Potassium 3.7 mmol/L (3.4-5.0); Sodium 137 mmol/L (137-145)
[2020-11-01 05:59] LABS: White Blood Count 1.8 K/mm3 (4.5-10.0)
[2020-11-01] MEDS: LEVOTHYROXINE SODIUM 50 MCG TABLET PO (06:33)
--- NOTE | 2020-11-01 06:49 | WPDUROPN2 ---
Progress Note: A&P Assessment and Plan (1) Recurrent UTI: Code(s): N39.0 - Urinary tract infection, site not specified Status: Acute Assessment and Plan: Calcification seen on CT scan turned-out not to be a stone -> was a calcified pelvic vein just outside ureter. Urologically, her only problem is recurrent UTI without any underlying pathology. Would recommend self-directed antibiotics (ie. Keflex 500mg tid x3 days prn UTI). She can f/u with us in 4-6 weeks. Subjective Subjective Date/Time Seen: 11/01/20 06:49 Comfortable, tolerated cystoscopy well Review of Systems Cardiovascular: Cardiovascular: Denies chest pain, Denies lightheadedness, Denies palpitations and Denies dyspnea Respiratory: Respiratory: Denies dyspnea Gastrointestinal: Gastrointestinal: Denies diarrhea, Denies nausea and Denies vomiting Genitourinary: Genitourinary: Denies hematuria and Denies dysuria Endocrine: Endocrine: Denies palpitations Exam Const: General: no acute distress Resp: Effort & Inspection: normal respiratory effort GI: Inspection: non-distended GI Palp: No abdominal tenderness and No Guarding due to palpation present (GI) Auscultation: normal bowel sounds Objective Data Vital Signs Vital Signs: Vital Signs - 24 hr 10/31/20 10:03 10/31/20 14:59 10/31/20 15:40 Temperature 98.3 F 99.9 F H 97.7 F Pulse Rate 98 93 79 Respiratory Rate 16 12 Blood Pressure 118/70 116/64 80/43 L Pulse Oximetry 100 100 100 10/31/20 15:55 10/31/20 16:10 10/31/20 16:22 Temperature Pulse Rate 85 89 80 Respiratory Rate 16 19 17 Blood Pressure 106/71 108/71 111/68 Pulse Oximetry 100 100 100 10/31/20 20:00 10/31/20 21:10 11/01/20 00:00 Temperature 98.4 F 99.0 F Pulse Rate 100 87 Respiratory Rate 16 16 Blood Pressure 118/71 114/67 Pulse Oximetry 100 99 100 11/01/20 05:00 Temperature 98.6 F Pulse Rate 87 Respiratory Rate 16 Blood Pressure 112/61 Pulse Oximetry 100 Intake/Output Intake/Output: Intake & Output 03/16/21 03/17/21 03/18/21 03/19/21 23:59 23:59 23:59 23:59 Intake Total 5000 Output Total 50 Balance 4950 Meds/Results Medications: Active Medications Generic Name Dose Route Start Last Admin Trade Name Delvisq PRN Reason Stop Dose Admin Diphenhydramine HCl 25 mg 10/31/20 09:00 10/31/20 21:11 Diphenhydramine Hcl Inj 50 Mg/Ml Vial IV PUSH 25 mg Q4H PRN Administration Itching Lactated Ringer's 1,000 mls @ 75 mls/hr 10/31/20 02:20 10/31/20 22:21 Lr - Lactated Ringers Iv IV CONT 75 mls/hr .[id number] DEBBIE Administration Levofloxacin/Dextrose 750 mg in 150 mls @ 100 mls/hr 10/31/20 18:00 10/31/20 19:34 Levaquin 750 Mg/D5w 150 Ml IVPB Infused Q24H DEBBIE Infusion Levothyroxine Sodium 50 mcg 10/31/20 06:30 11/01/20 06:33 Levothyroxine Sodium 50 Mcg Tablet PO 50 mcg DAILY@0630 DEBBIE Administration Ondansetron HCl 4 mg 10/31/20 02:18 Ondansetron Inj 4 Mg/2 Ml Vial IV PUSH Q4H PRN Nausea Radiology Results: ITS Impressions Chest X-Ray 10/30/20 23:06 IMPRESSION: Negative Abdomen/Pelvis CT 10/31/20 06:58 IMPRESSION: 1. No etiology for the patient's symptoms. I discussed this result with Dr. Forbes. Fluoroscopy 10/31/20 15:48 IMPRESSION: Fluoroscopy used during left ureteroscopy. Labs Labs: Laboratory Results - last 24 hr 11/01/20 11/01/20 05:18 05:18 WBC 1.8 L* RBC 3.80 L Hgb 12.3 Hct 34.7 L MCV 91.3 MCH 32.4 MCHC 35.4 RDW 11.5 Plt Count 148 L MPV 10.8 H Immature Gran % (Auto) 0.5 Neut % (Auto) 40.3 L Lymph % (Auto) 46.2 H [place] % (Auto) 12.5 H Eos % (Auto) 0.0 Baso % (Auto) 0.5 Lymph # (Auto) 0.85 L [place] # (Auto) 0.2 Eos # (Auto) 0.0 Baso # (Auto) 0.0 Abs Immat Gran (auto) 0.01 Absolute Neuts (auto) 0.7 L Absolute Nucleated RBC 0.0 Nucleated RBC % 0.0 Sodium 137 Potassium 3.7 Chloride 106 Carbon [place]
[2020-11-01 08:50] VITALS: BP 118/63; PULSE 91; RESP 16; TEMP 36.7; O2SAT 100
--- NOTE | 2020-11-01 09:46 | P.PNAN_ITS ---
Anes - Prog Note Post-Op Date/Time: 11/01/20 09:46 Cardiovascular status: normal Respiratory status: normal Airway patency: baseline Mental status: baseline Post-Op hydration status: normal Vital Signs: Last Vital Signs Temp 36.7 C 11/01/20 08:50 Pulse 91 11/01/20 08:50 Resp 16 11/01/20 08:50 BP 118/63 11/01/20 08:50 Pulse Ox 100 11/01/20 08:50 Pain Score (VAS): 2 I/O: Intake & Output 10/31/20 11/01/20 11/01/20 23:59 07:59 15:59 Intake Total 1700 120 Balance 1700 120 Laboratory Tests 11/01/20 05:18 11/01/20 05:18 11/01/20 11/01/20 11/01/20 05:18 05:18 08:57 WBC 1.8 L* RBC 3.80 L Hgb 12.3 Hct 34.7 L MCV 91.3 MCH 32.4 MCHC 35.4 RDW 11.5 Plt Count 148 L MPV 10.8 H Immature Gran % (Auto) 0.5 Neut % (Auto) 40.3 L Lymph % (Auto) 46.2 H [place] % (Auto) 12.5 H Eos % (Auto) 0.0 Baso % (Auto) 0.5 Lymph # (Auto) 0.85 L [place] # (Auto) 0.2 Eos # (Auto) 0.0 Baso # (Auto) 0.0 Abs Immat Gran (auto) 0.01 Absolute Neuts (auto) 0.7 L Absolute Nucleated RBC 0.0 Nucleated RBC % 0.0 Sodium 137 Potassium 3.7 Chloride 106 Carbon Dioxide 25 Anion Gap 6 L BUN 7 Creatinine 0.60 L Estim Creat Clear Calc 92 Estimated GFR > 60 Glucose 91 Calcium 8.5 Total Bilirubin 0.2 AST 52 H ALT 36 H Alkaline Phosphatase 51 C-Reactive Protein 2.2 H Total Protein 7.0 Albumin 3.7 JEFFERY Screen Pending Microbiology 10/30/20 23:25 Blood Blood Culture - Preliminary 10/30/20 23:25 Blood Blood Culture - Preliminary Post-procedural complaints: none Patient Feedback: Patient satisfied with anesthetic care.
[2020-11-01] MEDS: diphenhydrAMINE HCl INJ 50 MG/ML VIAL 25 MG IV PUSH (10:56)
[2020-11-01 12:30] VITALS: BP 106/56; PULSE 96; RESP 16; TEMP 36.3; O2SAT 100
--- NOTE | 2020-11-01 14:06 | PM.DS ---
DS: Admitting Diagnosis Admitting Diagnosis Admitting Diagnosis: Fever DS: Discharge Diagnosis Discharge Diagnosis (1) Flank pain: Code(s): R10.9 - Unspecified abdominal pain Status: Acute Assessment and Plan: Patient came in with bilateral flank pain and recurrent UTIs in the past. CT abdomen was initially found to be negative but then believed to have a 3 mm stone obstructing left distal ureteral calculus. Patient undergo a cystoscopy and left uteroscopy by Dr. Forbes showing no acute kidney stone. (2) Recurrent UTI: Code(s): N39.0 - Urinary tract infection, site not specified Status: Acute Assessment and Plan: Patient had a Enterococcus UTI greater than 100,000 on 08/30/2020 that was treated with oral Macrobid. Patient reports symptoms never fully resolved and she had a repeat urinalysis on 10/15/2020 which grew Proteus mirabilis that was resistant to Macrobid. She was placed on Bactrim which she had for the last few days and developed fever despite antibiotics along with rash, lip swelling, a swelling. Discontinued Bactrim upon arrival Based on her urine sensitivity report her UTI should be susceptible to Levaquin. I will start IV Levaquin at this time and continue for at least 5 more days. Levaquin was discontinued due to her feeling numbness and tingling during infusion as well as for the next few hours after infusion. She was placed on Augmentin for 5 more days. I believe the patient should have added to allergies -BACTRIM or Sulfa drugs due to rash, lip swelling and periorbital swelling, concerns for possible anaphylactic reaction. Urology recommends follow up 4-6 weeks due to recurrent UTIs and recommend self-directed antibiotics (ie. Keflex 500mg tid x3 days prn UTI). Patient understands and agrees with the plan. All questions answered. (3) Urolithiasis: Code(s): N20.9 - Urinary calculus, unspecified Status: Acute Assessment and Plan: No active stone during cystoscopy that needed to be removed. (4) Hypothyroidism: Code(s): E03.9 - Hypothyroidism, unspecified Status: Inactive Assessment and Plan: Continue levothyroxine. No need to check TSH at this time can followed PCP as outpatient. (5) Rash: Code(s): R21 - Rash and other nonspecific skin eruption Status: Acute Assessment and Plan: Believed to be secondary to sulfa drug allergy. She was treated with IV Benadryl intermittently for symptoms. This has much improved, needing Benadryl last frequently. No more lip or periorbital swelling today. Minimal rash. She feels comfortable with discharge to continue taking Benadryl p.r.n. and return to ER with any worsening symptoms, shortness of breath, lips, tongue, periorbital, swelling or any other concerns. She understands and agrees the plan all questions answered. (6) Sepsis: Code(s): A41.9 - Sepsis, unspecified organism Status: Acute Assessment and Plan: patient meets sepsis criteria with fever, tachycardia, episode hypotension and leukopenia with elevated neutrophils on labs. This infection is in the setting of UTI/pyelo with flank pain. Will continue IV antibiotics for coverage of Proteus from her recent urine culture. Vital signs stable and she has not had any more fevers during admission. She is feeling well and ready for discharge on oral antibiotics. (7) Leukopenia: Code(s): D72.819 - Decreased white blood cell count, unspecified Status: Acute Assessment and Plan: This appears to be chronic in nature even from labs from December 21, 2018. Today she was 1,800. I ordered an JEFFERY screen for pos
--- NOTE | 2020-11-08 08:37 | PC.NURSE ---
Blood cx are negative.
== END 2020-11-01 15:46 | disposition home or self-care (01) ==
LOC: ANHED 10-31 01:57 → ANH2MED 10-31 07:01
PROVIDERS: Emergency Medicine Emergency Medical Services; Urology; Admitting Provider Family Medicine; Emergency Provider Emergency Medicine; PCP Physician Assistant; Visit Provider Physician Assistant
PROC: (CPT 52352; principal; 2020-10-31 15:45)
DX: N20.9 Urinary calculus, unspecified (principal); N39.0 Urinary tract infection, site not specified; A41.9 Sepsis, unspecified organism; B96.4 Proteus (mirabilis) (morganii) as the cause of diseases classified elsewhere; R21 Rash and other nonspecific skin eruption; R10.9 Unspecified abdominal pain; D72.819 Decreased white blood cell count, unspecified; E03.9 Hypothyroidism, unspecified; K21.9 Gastro-esophageal reflux disease without esophagitis
CPT/HCPCS: 52351; 36415; 51701; 71045; 74177; 80053; 81001; 83605; 83690; 85025; 85610; 85730; 86038; 86140; 87040; 87081; 87804; 87880; 93005; 96361; 96365; 96367; 96375; 96376; 99285; A9270; C1769; G0378; G0379; J0690; J0696; J1100; J1200; J1741; J1956; J2250; J2405; J2704; J3010; J7030; J7120; Q9967

== ENCOUNTER 2021-01-31 11:08 | Outpatient (CLI) | payer OTHER, SELFPAY ==
[2021-01-31 11:39] LABS: Hematocrit 39.4 % (37.0-47.0); Hemoglobin 13.4 g/dL (12.0-15.0); Mean Corpuscular Hemoglobin 31.2 pg (26-34); Mean Corpuscular Volume 91.8 fl (80-100); Mean Platelet Volume 10.6 fl (7.4-10.4); Platelet Count Result 216 k/mm3 (150-375); Red Blood Count 4.29 M/mm3 (4.2-5.4); Red Cell Distribution Width 11.5 % (11.5-14.5); White Blood Count 3.4 K/mm3 (4.5-10.0)
[2021-01-31 12:10] LABS: Beta HCG Quantitative < 2.39 mIU/ML
[2021-01-31 13:31] LABS: Free T4 Free Thyroxine 1.12 ng/mL (0.78-2.19); Vitamin D 25 Hydroxy 55.4 ng/mL
[2021-02-03 12:48] LABS: Prolactin 4.8 ng/mL (***)
== END 2021-01-31 11:09 | disposition home or self-care (01) ==
LOC: ANHLAB 11:10
PROVIDERS: PCP Physician Assistant; Visit Provider Nurse Practitioner
DX: E03.9 Hypothyroidism, unspecified (principal); N92.0 Excessive and frequent menstruation with regular cycle; R53.83 Other fatigue; E55.9 Vitamin D deficiency, unspecified
CPT/HCPCS: 36415; 82306; 82607; 84146; 84439; 84443; 84702; 85027

== ENCOUNTER 2021-02-11 08:45 | Outpatient (CLI) | payer OTHER, SELFPAY ==
--- NOTE | ~2021-02-11 | MM_ITS ---
EXAMINATION: MM screening ericka BI w katelin HISTORY: Screening TECHNIQUE: Craniocaudal and mediolateral oblique 3-D tomosynthesis images were obtained and synthetic 2-D images were generated. CAD analysis was submitted and interpreted. COMPARISON: No prior mammogram is available for comparison at this institution. BREAST PARENCHYMAL COMPOSITION: The breasts are heterogeneously dense, which may obscure small masses . FINDINGS: There is no evidence of suspicious mass, calcification, or architectural distortion to sugg est malignancy in either breast. There has been no suspicious interval change. IMPRESSION: 1. No mammographic evidence of malignancy. 2. Recommend routine screening mammography in one year. BI-RADS Category 1: Negative Reviewed, dictated and finalized at location A.
== END 2021-02-11 08:46 | disposition home or self-care (01) ==
PROVIDERS: PCP Physician Assistant; Visit Provider Obstetrics & Gynecology Gynecology
DX: Z12.31 Encounter for screening mammogram for malignant neoplasm of breast (principal)
CPT/HCPCS: 77063; 77067

== ENCOUNTER 2021-02-13 11:01 | Outpatient (CLI) | payer OTHER, SELFPAY ==
--- NOTE | ~2021-02-13 | US_ITS ---
EXAMINATION: US pelvic complete w TV DATE: 02/13/2021 11:38 INDICATION: Excessive and frequent menstruation. TECHNIQUE: Multiple transabdominal and transvaginal sonographic images of the pelvis were obtained. COMPARISON: None. FINDINGS: TRANSABDOMINAL ULTRASOUND: The uterus measures 9.7 x 4.6 x 5.9 cm. There is trace free fluid in the pelvis. TRANSVAGINAL ULTRASOUND: The endometrial complex measures 7 mm in thickness. The right ovary measures 4.1 x 2.3 x 2.3 cm. The left ovary measures 3.8 x 1.9 x 2.6 cm. There is normal vascular flow in the ovaries. IMPRESSION: 1. Normal pelvis. Reviewed, dictated and finalized at location A. IMPRESSION: 1. Normal pelvis.
== END 2021-02-13 11:02 | disposition home or self-care (01) ==
PROVIDERS: PCP Physician Assistant; Visit Provider Nurse Practitioner
DX: N92.0 Excessive and frequent menstruation with regular cycle (principal)
CPT/HCPCS: 76830; 76856

== ENCOUNTER 2021-04-14 00:37 | Day surgery (SDC) | payer OTHER, SELFPAY ==
[2021-04-10 08:27] VITALS: BMI 21.7
[2021-04-14] MEDS: LACTATED RINGERS 1,000 ML 30 ML IV CONT (06:30)
[2021-04-14] MEDS: ACETAMINOPHEN 500 MG TABLET 1000 MG PO (06:32)
[2021-04-14 07:00] VITALS: BP 114/71; PULSE 63; RESP 18; TEMP 36.6; O2SAT 100
--- NOTE | 2021-04-14 07:08 | P.HP_ITS ---
History of Present Illness History of Present Illness Consent: Risks, benefits, and alternatives have been discussed and questions answered. Patient agrees to proceed with procedure. Chief complaint: menorrhagia Narrative: Cecily Leonardo is a 40 year old female who stopped her control in November of 2020 since then the patient's cycles have been quite heavy changing a pad every hour on days 2 to 3. Pelvic ultrasound was normal and blood work is normal. It was recommended to further evaluate with hysteroscopy D& C. Risks of infection, bleeding, and perforation were reviewed. Possible pathology was discussed. Patient voices understanding and agrees to proceed. Review of Systems Review of Systems: not repeated day of surgery; patient states no changes in s tatus Constitutional: Constitutional: Reports fatigue PMFSH Past Medical History Medical History (Updated 04/14/21 @ 07:13 by Gisselle Guido MD) GERD (gastroesophageal reflux disease) Hypothyroidism (normal spontaneous vaginal delivery) x2 Septate hymen with excision Surgical History Surgical History Hx laparoscopic cholecystectomy Family History Family History Mother Hypertension Sibling Family history of thyroid problem Other Family history of allergic disorder Family history of anemia Social History Social History (Updated 10/31/20 @ 17:32 by Christine Navarro PA-C) Smoking status: Never smoker Second hand tobacco smoke exposure: No Alcohol intake: never Alcohol use details: occasional Substance use: never Living arrangements: with family Additional occupation/education comments: stay at home mom Gender identity (if verbalized by the patient): Female Spiritual care concerns: No Meds Home Medications and Allergies Home Medications Medication Instructions Recorded Confirmed Type levothyroxine 50 mcg tablet 50 mcg PO DAILY 09/27/19 04/10/21 History omeprazole 40 mg capsule,delayed 40 mg PO DAILY 01/09/20 04/10/21 History release Vitamin Plus Low Iron 1 tablet PO DAILY 10/31/20 04/10/21 History diphenhydramine HCl [Benadryl] 25 mg PO HS 10/31/20 04/10/21 History cholecalciferol (vitamin D3) 5,000 unit PO DAILY 04/10/21 04/10/21 History [Vitamin D3] sucralfate 1 g PO TID 04/10/21 04/10/21 History Allergies Allergy/AdvReac Type Severity Reaction Status Date / Time Sulfa (Sulfonamide Allergy Intermediate Hives Verified 04/10/21 08:20 Antibiotics) Exam Const: General: comfortable and no acute distress : External Female Exam: normal external appearance Speculum Exam - Vagina: normal appearance of the vagina Speculum Exam - Cervix: normal appearance of the cervix Bimanual exam- vagina & uterus: normal bimanual exam Bimanual Exam- Adnexa, other: normal adnexae Assessment and Plan Assessment and plan (1) Menorrhagia: Code(s): N92.0 - Excessive and frequent menstruation with regular cycle Status: Acute Assessment and Plan: Plan to proceed with D&C hysteroscopy
--- NOTE | 2021-04-14 07:08 | WPDHPUPDATE1 ---
History and Physical Update Update Date/Time: 04/14/21 07:08 History and Physical has been reviewed, including an updated exam of the patient. There are NO changes in the patient's condition. Risks, benefits, and alternatives have been discussed and questions answered. Patient agrees to proceed with procedure.
--- NOTE | 2021-04-14 07:10 | WPDANESEPPF ---
Anes - Initial Pre Proc Eval Procedure: Operation Date: 04/14/21 08:00 Proposed Procedures p Hysteroscopy Dilation and Curettage - Gisselle Guido MD Date/Time: 04/14/21 07:10 Surgeon: Gisselle Guido MD Pre Op Diagnosis: menorrhagia Patient Data Age: 40 Gender: F Height: 1.63 m Weight: 57.27 kg Allergies Allergy/AdvReac Type Severity Reaction Status Date / Time Sulfa (Sulfonamide Allergy Intermediate Hives Verified 04/10/21 08:20 Antibiotics) Home Medications Medication Instructions Recorded Confirmed Type levothyroxine 50 mcg tablet 50 mcg PO DAILY 09/27/19 04/10/21 History omeprazole 40 mg capsule,delayed 40 mg PO DAILY 01/09/20 04/10/21 History release Vitamin Plus Low Iron 1 tablet PO DAILY 10/31/20 04/10/21 History diphenhydramine HCl [Benadryl] 25 mg PO HS 10/31/20 04/10/21 History cholecalciferol (vitamin D3) 5,000 unit PO DAILY 04/10/21 04/10/21 History [Vitamin D3] sucralfate 1 g PO TID 04/10/21 04/10/21 History Patient hx anesthesia problems: none Family hx anesthesia problems: none PMFSH Past Medical History Medical History GERD (gastroesophageal reflux disease) Hypothyroidism Surgical History Surgical History Hx laparoscopic cholecystectomy Family History Family History Mother Hypertension Sibling Family history of thyroid problem Other Family history of allergic disorder Family history of anemia Social History Social History Smoking status: Never smoker Second hand tobacco smoke exposure: No Alcohol intake: never Alcohol use details: occasional Substance use: never Living arrangements: with family Additional occupation/education comments: stay at home mom Gender identity (if verbalized by the patient): Female Spiritual care concerns: No Anes - Eval Final PreProcedure Day of Procedure 04/14/21 07:10 Patient weight: normal Heart: regular rate and rhythm Lungs: clear to auscultation Airway: Mallampati scale class II Neurological: alert and oriented Last oral intake: >/= 8 hours ASA classification: II Emergent: no Anesthetic plan: proceed Anesthesia type and monitoring: general GIVS and standard monitoring Informed Consent: The patient's anesthetic plan and its attendant risks and benefits were discussed with the patient/family/POA. Questions were solicited and answers provided to the satisfaction of the patient/family/POA.
[2021-04-14] MEDS: KETOROLAC 30 MG/ML VIAL (*BKC) IV PUSH (07:45)
[2021-04-14 07:48] VITALS: BP 80/47; PULSE 54; RESP 14; O2SAT 99
[2021-04-14 08:18] VITALS: BP 117/65; PULSE 53; RESP 14; O2SAT 99
[2021-04-14 08:40] VITALS: BP 118/78; PULSE 69; RESP 14
--- NOTE | 2021-04-24 07:35 | P.OP_ITS ---
Procedure Note - Detailed Date of Procedure 04/24/21 Pre-op Diagnosis menorrhagia Post-op Diagnosis same Procedure Performed D&C hysteroscopy Surgeon Gisselle Guido MD Anesthesia MAC and local Findings uterus appears grossly normal Description of Procedure the patient is taken to the operating room and placed under anesthesia in the dorsal lithotomy position. She was prepped and draped in the usual sterile fashion. [place] speculum was placed in the vagina and the cervix is grasped on the anterior lip with a tenaculum. The cervix is injected with 1% lidocaine.The uterus is sounded and the cervix is serially dilated with Hegar. The diagnostic hysteroscope was placed with no abnormalities noted. The medium sharp curette is used to sharply curette the endometrium until a good uterine cry was noted in all areas. All instruments are removed. Sponge, needle, and instrument counts are correct per the OR staff. Patient is awakened from anesthesia and taken to recovery in stable condition. Estimated Blood Loss 5 Drains No Packing No Pathology yes ( Endometrial curettings) Complications No immediate complications Condition stable Disposition PACU
== END 2021-04-14 09:05 | disposition home or self-care (01) ==
PROVIDERS: PCP Physician Assistant; Visit Provider Obstetrics & Gynecology Gynecology
PROC: 0U5B8ZZ Destruction of Endometrium, Via Natural or Artificial Opening Endoscopic (ICD-10-PCS; CPT 58563; principal; 2021-04-14 08:00)
DX: N92.0 Excessive and frequent menstruation with regular cycle (principal); E03.9 Hypothyroidism, unspecified; K21.9 Gastro-esophageal reflux disease without esophagitis
CPT/HCPCS: 58558; 88305; A9270; J1885; J2250; J2704; J3010; J7030; J7120

== ENCOUNTER → 2021-08-18 01:09 | Outpatient (CLI) | payer OTHER, SELFPAY ==
[2021-08-18 21:22] LABS: SARS-CoV-2 RNA PCR Positive
== END ==
PROVIDERS: PCP Physician Assistant; Visit Provider Physician Assistant
DX: U07.1 COVID-19 (principal)
CPT/HCPCS: C9803; U0003; U0005

== ENCOUNTER 2021-09-19 14:58 | Outpatient (CLI) | payer OTHER, SELFPAY ==
[2021-09-19 15:53] LABS: Alanine Aminotransferase 24 U/L (4-35); Albumin Level 4.4 g/dL (3.5-5.1); Alkaline Phosphatase 57 U/L (38-126); Anion Gap 3 mmol/L (8-16); Aspartate Amino Transferase 32 U/L (14-36); Bilirubin,Total 0.4 mg/dL (0.2-1.3); Blood Urea Nitrogen 8 mg/dL (7-17); Calcium 9.3 mg/dL (8.4-10.2); Carbon Dioxide 30 mmol/L (22-30); Chloride 102 mmol/L (98-107); Estimated Glomerular Filt Rate > 60; Glucose 89 mg/dL (65-110); Potassium 4.2 mmol/L (3.4-5.0); Sodium 135 mmol/L (137-145)
[2021-09-19 16:05] LABS: Immunoglobulin A 169 mg/dL (70-400); Immunoglobulin G 1415 mg/dL (700-1600); Immunoglobulin M 179 mg/dL (40-230)
[2021-09-24 20:29] LABS: Lupus dRVVT 1:1 Mix Interpreta Not Indicated; Lupus dRVVT Screen 31 sec (<=45); PTT-LA Screen 33 sec (<=40)
== END 2021-09-19 14:59 | disposition home or self-care (01) ==
LOC: ANHLAB 15:09
PROVIDERS: PCP Physician Assistant
DX: R76.8 Other specified abnormal immunological findings in serum (principal)
CPT/HCPCS: 36415; 80053; 82784; 85613; 85730; 86880

== ENCOUNTER 2022-05-12 09:38 | Outpatient (CLI) | payer OTHER, SELFPAY ==
[2022-05-12 10:16] LABS: Hemoglobin A1C 5.3 % (<5.7)
[2022-05-12 10:57] LABS: Free T4 Free Thyroxine 1.36 ng/mL (0.78-2.19)
[2022-05-16 08:40] LABS: Progesterone 12.6 ng/mL (***); Prolactin 5.3 ng/mL (***)
[2022-05-16 10:11] LABS: Testosterone Free 1.4 pg/mL (0.2-5.0)
[2022-05-16 11:45] LABS: DHEA-Sulfate 213 mcg/dL (19-231); Insulin Level Total 2.9 uIU/mL (<=19.6)
== END 2022-05-12 09:39 | disposition home or self-care (01) ==
PROVIDERS: PCP Physician Assistant; Visit Provider Nurse Practitioner
DX: N92.0 Excessive and frequent menstruation with regular cycle (principal); N92.6 Irregular menstruation, unspecified
CPT/HCPCS: 36415; 82627; 82670; 83036; 83525; 84144; 84146; 84402; 84439; 84443

== ENCOUNTER 2022-05-25 10:16 | Outpatient (CLI) | payer OTHER, SELFPAY ==
--- NOTE | ~2022-05-25 | MM_ITS ---
EXAMINATION: MM screening ericka BI w katelin HISTORY: Screening TECHNIQUE: Craniocaudal and mediolateral oblique 3-D tomosynthesis images were obtained and synthetic 2-D images were generated. CAD analysis was submitted and interpreted. COMPARISON: 02/11/2021 BREAST PARENCHYMAL COMPOSITION: The breasts are heterogeneously dense, which may obscure small masses . FINDINGS: There is no evidence of suspicious mass, calcification, or architectural distortion to sugg est malignancy in either breast. There has been no suspicious interval change. IMPRESSION: 1. No mammographic evidence of malignancy. 2. Recommend routine screening mammography in one year. BI-RADS Category 1: Negative Reviewed, dictated and finalized at location A.
== END 2022-05-25 10:17 | disposition home or self-care (01) ==
LOC: ANHIMG 10:17
PROVIDERS: PCP Physician Assistant; Visit Provider Nurse Practitioner
DX: Z12.31 Encounter for screening mammogram for malignant neoplasm of breast (principal)
CPT/HCPCS: 77063; 77067

== ENCOUNTER 2022-06-03 09:44 | Outpatient (CLI) | payer OTHER, SELFPAY ==
[2022-06-07 11:32] LABS: Testosterone Total 24 ng/dL (2-45)
[2022-06-11 20:36] LABS: Estradiol, Ultrasensitive 35 pg/mL
== END 2022-06-03 09:45 | disposition home or self-care (01) ==
LOC: ANHLAB 09:46
PROVIDERS: PCP Physician Assistant; Visit Provider Obstetrics & Gynecology Gynecology
DX: N92.0 Excessive and frequent menstruation with regular cycle (principal); N92.6 Irregular menstruation, unspecified
CPT/HCPCS: 36415; 82670; 83498; 84403

== ENCOUNTER 2022-07-17 10:33 | Emergency (ER) | payer OTHER, SELFPAY ==
[2022-07-17 10:48] VITALS: BP 117/68; PULSE 89; RESP 16; TEMP 36.2; O2SAT 99
--- NOTE | 2022-07-17 11:44 | ED.URI ---
HPI - URI/Sore Throat General Chief Complaint: Upper Respiratory Infection Stated Complaint: body ache, sore throat, cough Time Seen by Provider: 07/17/22 11:44 Source: patient Mode of arrival: ambulatory Limitations: no limitations History of Present Illness HPI Narrative: [age] year female presents complaint fever, cough, body aches, sore throat for 3 days. States that body aches and fever have resolved. States she is taking Sudafed and Tylenol to treat her symptoms. Not taking a cough suppressant, complains that she continues to cough. Denies chest pain and shortness of breath. Patient is well-appearing and talkative. All systems reviewed and negative except as noted above. Related Data Home Medications Medication Instructions Recorded Confirmed levothyroxine 50 mcg tablet 50 mcg PO DAILY 09/27/19 07/17/22 (Synthroid) omeprazole 40 mg capsule,delayed 40 mg PO DAILY 01/09/20 07/17/22 release diphenhydramine HCl 25 mg capsule 25 mg PO HS 10/31/20 07/17/22 (Benadryl) vitamin with calcium 1 tablet PO DAILY 10/31/20 07/17/22 no.72-iron 27 mg-folic acid 1 mg tablet ( Vitamins Plus Low Iron) cholecalciferol (vitamin D3) 125 5,000 unit PO DAILY 04/10/21 07/17/22 mcg (5,000 unit) tablet (Vitamin D3) sucralfate 1 gram tablet 1 g PO TID 04/10/21 07/17/22 Allergies Allergy/AdvReac Type Severity Reaction Status Date / Time Sulfa (Sulfonamide Allergy Intermediate Hives Verified 07/17/22 10:59 Antibiotics) Review of Systems Review of Systems: CONSTITUTIONAL: Reports fever, chills, or sweats. EYES: Denies visual changes, redness, or discharge. ENT: Denies rhinorrhea, congestion, sore throat, or otalgia. CARDIOVASCULAR: Denies chest pain, palpitations, or edema. RESPIRATORY: reports cough. Denies dyspnea. GASTROINTESTINAL: Denies abdominal pain, nausea, vomiting, or diarrhea. GENITOURINARY: Denies dysuria or hematuria. SKIN: Denies rash or itching. MUSCULOSKELETAL: Denies back pain, joint pain, or myalgia. NEUROLOGIC: Denies headache, numbness, or weakness. PSYCHIATRIC: Denies anxiety or depression. All other systems reviewed are negative, except as documented in HPI. [facility] Past Medical History Medical History (Updated 07/17/22 @ 11:50 by Rose Marie Berman NP) GERD (gastroesophageal reflux disease) Hypothyroidism (normal spontaneous vaginal delivery) x2 Septate hymen with excision Surgical History Surgical History Hx laparoscopic cholecystectomy Family History Family History Mother Hypertension Sibling Family history of thyroid problem Other Family history of allergic disorder Family history of anemia Social History Social History Smoking status: Never smoker Second hand tobacco smoke exposure: No Alcohol intake: never Alcohol use details: occasional Substance use: never Additional occupation/education comments: stay at home mom Gender identity (if verbalized by the patient): Female Spiritual care concerns: No Comments At time of signature, agree with nursing past medical, surgical, social and family history. There is no relevant family history pertinent to the presenting complaint. Exam Narrative: GENERAL: This is a well-nourished, well-developed patient, in no apparent distress. HEAD: normocephalic, atraumatic. EYES: PERRL. Sclera clear/white. Vision is grossly intact. EARS: External ears normal, auditory canals clear and without drainage, TMs normal without perforation. Hearing grossly intact. NOSE: External nose normal with no obvious nasal discharge, nares without redness, no rhinorrhea. THROAT: Mucous membranes moist, posterior pharynx clear. NECK: Neck supple, non-tender without lymphadenopathy, masses or thyromegaly. CARDIOVASCULAR: Re
== END 2022-07-17 11:56 | disposition home or self-care (01) ==
PROVIDERS: Emergency Provider Nurse Practitioner Family; PCP Physician Assistant
DX: J00 Acute nasopharyngitis [common cold] (principal); E03.9 Hypothyroidism, unspecified; Z20.822 Contact with and (suspected) exposure to COVID-19
CPT/HCPCS: 87426; 87804; 99213; C9803; G0463

== ENCOUNTER 2022-12-15 14:09 | Outpatient (CLI) | payer OTHER, SELFPAY ==
[2022-12-15 17:49] LABS: Free T4 Free Thyroxine 1.07 ng/mL (0.78-2.19); Vitamin D 25 Hydroxy 63.2 ng/mL
== END 2022-12-15 14:10 | disposition home or self-care (01) ==
PROVIDERS: PCP Physician Assistant; Visit Provider Nurse Practitioner
DX: E03.9 Hypothyroidism, unspecified (principal); E55.9 Vitamin D deficiency, unspecified; E04.1 Nontoxic single thyroid nodule
CPT/HCPCS: 36415; 82306; 84439; 84443

== ENCOUNTER 2024-01-04 14:02 | Outpatient (CLI) | payer OTHER, SELFPAY ==
--- NOTE | ~2024-01-04 | MM_ITS ---
EXAMINATION: MM screening ericka BI w katelin HISTORY: Screening TECHNIQUE: Craniocaudal and mediolateral oblique 3-D tomosynthesis images were obtained and synthetic 2-D images were generated. CAD analysis was submitted and interpreted. COMPARISON: Comparison to multiple prior studies sequentially, with oldest reviewed study dated 02/11. BREAST PARENCHYMAL COMPOSITION: Dense: The breasts are heterogeneously dense, which may obscure small masses FINDINGS: There is no evidence of suspicious mass, calcification, or architectural distortion to sugg est malignancy in either breast. There has been no suspicious interval change. IMPRESSION: 1. No mammographic evidence of malignancy. 2. Recommend routine screening mammography in one year. BI-RADS Category 1: Negative Reviewed, dictated and finalized at location A.
== END 2024-01-04 14:03 | disposition home or self-care (01) ==
PROVIDERS: PCP Physician Assistant; Visit Provider Obstetrics & Gynecology Gynecology
DX: Z12.31 Encounter for screening mammogram for malignant neoplasm of breast (principal)
CPT/HCPCS: 77063; 77067

== ENCOUNTER 2024-01-26 15:10 | Outpatient (CLI) | payer OTHER, MEDICAID, SELFPAY ==
[2024-01-26 16:13] LABS: Cholesterol 167 mg/dL (0-200); HDL Direct 33 mg/dL; Triglycerides 497 mg/dL (<150)
[2024-01-26 16:23] LABS: LDL Cholesterol Direct 78 mg/dL
[2024-01-26 20:28] LABS: Hemoglobin A1C 5.4 % (<5.7)
== END 2024-01-26 15:11 | disposition home or self-care (01) ==
LOC: ANHLAB 15:13
PROVIDERS: PCP Physician Assistant; Visit Provider Obstetrics & Gynecology Gynecology
DX: E55.9 Vitamin D deficiency, unspecified (principal); Z01.419 Encounter for gynecological examination (general) (routine) without abnormal findings
CPT/HCPCS: 36415; 80061; 82306; 83036; 84439; 84443

== ENCOUNTER 2024-12-01 13:17 | Outpatient (CLI) | payer OTHER, MEDICAID, SELFPAY ==
--- OUTSIDE RECORDS SUMMARY | 2024-12-01 13:22 | XMS_ITS | Clinical Summary ---
Author Organization [facility] Address [address] [place] [address] Care Team Providers Care Shrinker Name Role Phone Rosie Damon PA-C Primary Care Provider Source Comments [facility],non-owned Affiliates and Associated Physician Practices is amultiple site organization consisting of ambulatory clinics and hospital sitesin [place], [place], [place] and [place]. This disclosure is being madepursuant to the Care Everywhere program and may not contain all information available regarding this patient. Last updated 18.[facility] Allergies Active Allergy Reactions Criticality Noted Date Comments Sulfamethoxazole W-Trimethoprim Urticaria Medium 03/2022 Medications * Be aware that medications may not be up to date on this document. Alwaysverify current medications with the patient. sucralfate (CARAFATE) 1 GM tablet Take 1 (one) tablet by mouth 4 times daily - before meals & nightly Active diphenhydrAMINE (Benadryl) 25 MG capsule Take 1 (one) capsule by mouth every 4 hours as needed for Itching Active levothyroxine (Synthroid) 50 MCG tablet Take 1 (one) tablet by mouth once daily 02/26/2022 Active omeprazole (PriLOSEC) 40 MG capsule Take 1 (one) capsule by mouth once daily 04/09/2022 Active cyanocobalamin (Vitamin B-12) 1000 MCG tablet Take 1 (one) tablet by mouth once daily Active lactobacillus extra strength (Florajen) capsule Take 1 (one) capsule by mouth 3 times daily Active famotidine (Pepcid) 40 MG tablet Take 1 (one) tablet by mouth 2 times daily Active Digestive Enzymes (DIGESTIVE ENZYME PO) Take 1 tablet by mouth once daily Active norethindrone-e thinyl estradiol (Loestrin 09/04) 1-20 MG-MCG tablet Take 1 (one) tablet by mouth once daily 11/14/2022 Active amitriptyline (Elavil) 25 MG tablet Take 1 (one) tablet by mouth Active methenamine hippurate (Hiprex) 1 GM tablet Take 1 (one) tablet by mouth 2 times daily 60 tablet 1 07/19/2023 Active ascorbic acid (Vitamin C) 500 MG tablet Take 1 (one) tablet by mouth 2 times daily 60 tablet 1 07/19/2023 Active Active Problems Problem Noted Date Diagnosed Date Anxiety 09/11/2022 Chronic cough 09/11/2022 Hypothyroidism 09/11/2022 Lump on face 09/11/2022 Pruritic rash 09/11/2022 Throat irritation 09/11/2022 Biliary disease 05/31/2022 Acid reflux 04/23/2022 Menorrhagia 04/15/2022 Recurrent urinary tract infection 04/15/2022 Fecal incontinence 10/20/2021 History of vaginal surgery 10/20/2021 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 She has had some symptoms of ocular dryness although her recent repeated evaluation by her order management specialist earlier today did not seem to suggest any findings that would confirm keratoconjunctivitis sicca. It appears that her JEFFERY screening was performed due to complaints of ongoing mouth irritation which she attributes to possible acid irritation however PCP notes indicate symptoms of xerostomia (patient does indicate a sensation of mouth dryness and irritation when she awakens in the morning at least since the age of 23). She has had previously diagnosed hypothyroidism initially a determined about 6 years ago at the time of her and now is on levothyroxine replacement. There can be a statistical increased prevalence of Sjogren syndrome in patients with autoimmune Chandana's thyroiditis (leading to hypothyroidism). Additional laboratory testing did identify slightly low white blood cell count at 3100 with normal low range at 3400. Leukopenia can potentially be seen as a hematologic manifestation in patient with both systemic lupus as well as primary Sjogren syndrome. I have suggested some follow-up serology to be checked today and a return appointment to be scheduled for reassessment again in about 6 months. Patient did agree to further diagnostic testing and follow-up recommendations as noted above. Leukopenia 08/18/2021 Assessment & Plan (08/18/2021 1:27 PM HAND TILE MAKER): Mild leukopenia identified on CBC 11 11/02/2020 with a total white blood cell count of 3100 with normal low range for her lab of 3400 with differential identifying mild component of absolute neutropenia with a count of 1300 but otherwise normal total lymphocyte count at 1300. Uncertain if modestly reduced white blood cell count has any relationship to previously identified positive JEFFERY and low positive reflexive direct anti SSA antibody. Family History Medical History Relation Name Comments None Known Father None Known Maternal Grandfather None Known Maternal Grandmother High Cholesterol Mother Hypertension Mother Thyroid Disease Mother None Known Paternal Grandfather None Known Paternal Grandmother Relation Name Status Comments Father Alive Maternal Grandfather Maternal Grandmother Mother Alive Paternal Grandfather Paternal Grandmother Social History Tobacco Use Types Packs/Day Years Used Date Smoking Tobacco: Never Smokeless Tobacco: Never Tobacco Cessation:Counseling Given: Not Answered Alcohol Use Standard Drinks/Week Comments Not Currently 0 (1 standard drink = 0.6 oz pur e alcohol) AUDIT-C Answer Date Recorded Q1: How often do you have a drink containing alcohol? Never 09/11/2022 Q2: How many drinks containi ng alcohol do you have on a typical day when you are drinking? Patient does not drink Q3: How often do you have si x or more drinks on one occasion? Never 09/11/2022 Comments No Sex and Gender Information Value Date Recorded Sex Assigned at Not on file Legal Sex Female 11:45 PM CDT Gender Identity Not on file Sexual Orientation Not on file Last Filed Vital Signs Vital Sign Reading Time Taken Comments Blood Pressure 127/84 07/19/2023 3:41 PM HAND TILE MAKER Pulse 96 07/19/2023 3:41 PM HAND TILE MAKER Temperature 36.4 C (97.5 F) 07/19/2023 3:41 PM HAND TILE MAKER Respiratory Rate 18 12/09/2022 10:08 AM CDT Oxygen Saturation 99% 07/19/2023 3:41 PM HAND TILE MAKER Inhaled Oxygen Concentration - - Weight 55.8 kg (123 lb) 07/19/2023 3:41 PM HAND TILE MAKER Height 162.6 cm (5' 4 ) 07/19/2023 3:41 PM HAND TILE MAKER Body Mass Index 21.11 07/19/2023 3:41 PM HAND TILE MAKER Plan of Treatment Health Maintenance Due Date Last Done Comments LIPID TESTING 1980 MAMMOGRAM 1980 PAP SMEAR 1980 HIV SCREENING 11/05/1995 HEPATITIS C SCREENING 10/31/1998 DTAP/TDAP/TD VACCINES (1 - Tdap) 11/05/1999 HEPATITIS B VACCINE (1 of 3 - 19+ 3-dose series) 11/05/1999 COVID-19 VACCINE ( season) 2024 09/16/2021, 11/24/2020, 11/16/2020, Additional history exists DEPRESSION SCREENING 08/16/2024 INFLUENZA VACCINE (Season Ended) 2025 ZOSTER VACCINE (1 of 2) 2030 HIB VACCINE Aged Out No longer eligi ble based on patient's age to complete this topic HPV VACCINE Aged Out No longer eligi ble based on patient's age to complete this topic MENINGOCOCCAL (Group B) VACCINE SHARED DECISION-MAKING Aged Out No longer eligible based on patient's age to complete this topic MENINGOCOCCAL GROUPS A/C/Y/W VACCINE Aged Out No longer eligible based on patient's age to complete this topic PNEUMOCOCCAL VACCINE Aged Out No long er eligible based on patient's age to complete this topic Insurance [facility] Care Teams Shrinker Relationship Specialty Start Date End Date Rosie Damon PA-C [address] [place] [id number] PCP - General Physician [employer] Wiring Technician 05/22/22
--- OUTSIDE RECORDS SUMMARY | 2024-12-01 13:22 | XMS_ITS | Referral Summary ---
Author Organization [facility] Address [address] [place] [address] Care Team Providers Care Deployment Specialist Name Role Phone Rosie Damon Primary Care Provider + Allergies Active Allergy Reactions Criticality Noted Date Comments Sulfamethoxazole-Trimethoprim Rash Medium 2022 Medications levothyroxine (SYNTHROID) 50 mcg tablet Take 1 tablet (50 mcg total) by mouth daily 1 Active norethindrone ac-eth estradioL (MICROGESTIN 09/04) 1-20 mg-mcg per tablet daily 1 Active UNABLE TO FIND Med Name: florastro probiotic Active albuterol HFA (PROVENTIL HFA,VENTOLIN HFA,PROAIR HFA) 90 mcg/actuation inhaler Inhale 2 puffs every 4 (four) hours Active cyanocobalamin (Vitamin B-12) 1,000 mcg tablet Take 1 tablet (1,000 mcg total) by mouth daily Active diphenhydrAMINE 25 mg capsule Take 1 tablet/capsule (25 mg total) by mouth every 4 (four) hours as needed Active ergocalciferol, vitamin D2, 62.5 mcg (2,500 unit) capsule Take 5,000 Units by mouth 2 (two) times a day Active omeprazole (PriLOSEC) 40 mg capsule omeprazole 40 mg capsule,delayed release 2 Active amitriptyline (ELAVIL) 25 mg tablet Take 1 tablet (25 mg total) by mouth nightly at bedtime Active fluticasone propionate (FLONASE) 50 mcg/actuation nasal spray Administer 2 sprays into each nostril daily 16 [address] (CYMBALTA) 20 mg capsuleIndicati ons:Chronic throat clearing,Chroni c cough,Hoarsenes s,Sore throat,Heartbur n Take 1 capsule (20 mg total) by mouth daily 30 capsule 4 03/24/20 25 Active Active Problems Problem Noted Date Diagnosed Date Lesion of parotid gland 07/02/2024 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 Never 01/13/2024 Q2: How many drinks containi ng alcohol do you have on a typical day when you are drinking? Patient does not drink Q3: How often do you have si x or more drinks on one occasion? Never 01/13/2024 Personal Safety Answer Date Recorded Have you ever been in or are you currently in a harmful physical or emotional relationship or is someone making you feel afraid or unsafe? 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 Gender Identity Not on file Sexual Orientation Choose not to disclose 2021 9:52 PM CDT Last Filed Vital Signs Vital Sign Reading Time Taken Comments Blood Pressure 113/73 01/13/2024 8:48 AM CDT Pulse 59 01/13/2024 8:48 AM CDT Temperature 36.1 C (97 F) 01/13/2024 8:25 AM CDT Respiratory Rate 16 01/13/2024 8:48 AM CDT Oxygen Saturation 100% 01/13/2024 8:48 AM CDT Inhaled Oxygen Concentration - - Weight 63 kg (139 lb) 06/12/2024 10:06 AM CDT Height 162.6 cm (5' 4 ) 06/12/2024 10:06 AM CDT Body Mass Index 23.86 06/12/2024 10:06 AM CDT Plan of Treatment Upcoming Encounters Date Type Department Care Team (Latest Contact Info) Description 01/09/2025 11:30 AM CDT Hospital Encounter [facility] Operating Room [address] [place] [address] [place] [address] [address] 01/09/2025 11:30 AM CDT - 01/09/2025 2:30 PM CDT Surgery [facility] Operating Room [address] [place] [address] [place] [address] [id number] ACCESSORY PAROTIDECTOMY WITH LESS DISECTION-RIGHT/120MI N Scheduled Procedures Name Priority Associated Diagnoses Date/Ti me PAROTIDECTOMY Lesion of parotid gland Accessory parotid gland 01/09/2025 11:30 AM CDT Insurance [facility] IDPA [facility] CHOICE PLUS [facility] CHOICE PLUS IDPA Advance Directives For more information, please contact: [phone] * Full Code (Latest Code Status on File) Date Activated Date Inactivated Comments 01/13/2024 7:22 AM 01/13/2024 1:06 PM Care Teams Deployment Specialist Relationship Specialty Start Date End Date Rosie Damon PA PCP - General Physician Pharmacy Intake Coordinator 10/09/20
--- OUTSIDE RECORDS SUMMARY | 2024-12-01 13:22 | XMS_ITS | Encounter Summary ---
Author Organization [facility] Address [address] [place] [address] Phone Care Team Providers Care Stone Product Fabricator Name Role Phone Rosie Damon Primary Care Provider + Encounter Details Date Type Department Care Team (Latest Contact Info) Description 09/08/2022 Orders Only [facility] Scanning, Provider Social History Tobacco Use Types Packs/Day Years Used Date Smoking Tobacco: Never Smokeless Tobacco: Never AUDIT-C Answer Date Recorded Q1: How often do you have a drink containing alc ohol? 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 Gender Identity Not on file Sexual Orientation Choose not to disclose 2021 9:52 PM CDT documented as of this encounter Plan of Treatment Upcoming Encounters Date Type Department Care Team (Latest Contact Info) Description 01/09/2025 11:30 AM CDT Hospital Encounter [facility] Operating Room [address] [place] [address] [place] [address] [address] 01/09/2025 11:30 AM CDT - 01/09/2025 2:30 PM CDT Surgery [facility] Operating Room [address] [place] [address] [place] [address] [facility] [address] [place], [place] [id number] ACCESSORY PAROTIDECTOMY WITH LESS DISECTION-RIGHT/120MI N Scheduled Procedures Name Priority Associated Diagnoses Date/Ti me PAROTIDECTOMY Lesion of parotid gland Accessory parotid gland 01/09/2025 11:30 AM CDT documented as of this encounter Procedures Procedure Name Priority Date/Time Associated Diagnosis Comments SCAN - LABS 09/08/2022 documented in this encounter Results * SCAN - LABS (09/08/2022) us Provider Scanning Final Result documented in this encounter Visit Diagnoses Not on filedocumented in this encounter Care Teams Stone Product Fabricator Relationship Specialty Start Date End Date Rosie Damon PA PCP - General Physician Tar Chaser 10/09/20 documented as of this encounter
--- OUTSIDE RECORDS SUMMARY | 2024-12-01 13:22 | XMS_ITS | Clinical Summary ---
Author Organization [facility] Address [address] [place] [id number] Care Team Providers Care Household Appliance Installer Name Role Phone None, Provider MD Primary Care Provider Unavaila ble Allergies Active Allergy Reactions Criticality Noted Date Comments Sulfamethoxazole-Trimethoprim Hives Medium 2021 Medications famotidine (PEPCID) 40 MG tablet 04/09/2022 Active levothyroxine (SYNTHROID) 50 MCG tablet Take 50 mcg by mouth daily. 02/26/2022 Active omeprazole (PRILOSEC) 40 MG capsule 06/16/2022 Active sucralfate (CARAFATE) 1 G tablet Take 1 g by mouth. 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 Gender Identity Not on file Sexual Orientation Not on file Last Filed Vital Signs Vital Sign Reading Time Taken Comments Blood Pressure 113/77 06/29/2022 10:40 AM FRANKFURTER INSPECTOR Pulse 74 06/29/2022 10:40 AM FRANKFURTER INSPECTOR Temperature 36.4 C (97.5 F) 06/29/2022 10:15 AM FRANKFURTER INSPECTOR Respiratory Rate 17 06/29/2022 10:40 AM FRANKFURTER INSPECTOR Oxygen Saturation 100% 06/29/2022 10:40 AM FRANKFURTER INSPECTOR Inhaled Oxygen Concentration - - Weight 55.3 kg (122 lb) 06/29/2022 9:15 AM FRANKFURTER INSPECTOR Height 162.6 cm (5' 4 ) 06/29/2022 9:15 AM FRANKFURTER INSPECTOR Body Mass Index 20.94 06/29/2022 9:15 AM FRANKFURTER INSPECTOR Plan of Treatment Health Maintenance Due Date Last Done Comments Cervical Cancer Screening Pa p Smear (Age 30 to 64) Every 3 Years 1980 Annual Physical 11/05/1983 Hepatitis C 1998 DTaP, Tdap and Td Vaccines ( 1 - Tdap) 11/05/1999 Hepatitis B Vaccines (1 of 3 - 19+ 3-dose series) 11/05/1999 Cervical Cancer Screening Pa p with HPV Testing (Age 30 to 64) Every 5 Years 2010 Cervical Cancer Screening wi th HPV 2010 Mammogram Screening 2020 COVID-19 Vaccine (2023-2 5 season) 2024 09/16/2021, 11/16/2020, 10/25/2020 HPV Vaccines Aged Out No longer eligi ble based on patient's age to complete this topic Meningococcal B Vaccine Aged Out No l onger eligible based on patient's age to complete this topic Meningococcal Vaccine Aged Out No beatrice zhen eligible based on patient's age to complete this topic Pneumococcal Vaccine: Pediatrics (0 to 5 Years) and At-Risk Patients (6 to 49 Years) Aged Out No longer eligible b ased on patient's age to complete this topic RSV Immunizations Under 20 Months Aged Out No longer eligible b ased on patient's age to complete this topic Medical Devices Implanted Type Area Manager Of Distribution Device Identifier Shelf Expiration Date Model / Serial / Lot Capsule Ph Díaz Calibration Free Reflux Delivery System - [id number] Implanted:Qty: 1 on 06/29/2022 by Ramesh Reed MD at [facility] [employer] [id number] 05/05/2023 [id number] / [id number] Insurance Care Teams Household Appliance Installer Relationship Specialty Start Date End Date None, Provider, MD PCP - General UNKNOWN PHYSICIAN SPECIALTY 06/29/22
--- OUTSIDE RECORDS SUMMARY | 2024-12-01 13:22 | XMS_ITS | Clinical Summary ---
Author Organization [facility] Address [address] [place] [address] Phone Care Team Providers Care Technical Business Analyst Name Role Phone Catrina Allen Provider Primary Care Provider Unavailable Allergies No known active allergies Medications levothyroxine 50 mcg tablet Take 50 mcg by mouth daily in the morning. Active cholecalciferol , vitamin D3, (VITAMIN D3 ORAL) Take by mouth daily. Active raNITIdine (ZANTAC) 150 mg tablet 1 time daily as needed. 7 Active OTHER Hormone, to stop heavy menstruation Active oxyCODONE (ROXICODONE) 5 mg tabletIndicatio ns:History of vaginal surgery Take 1 Tablet (5 mg) by mouth every 4 hours as needed for moderate Pain. Max Daily Amount: 30 mg 20 Tablet 10/20/2021 4:20 PM PETROLEUM TRANSPORT DRIVER 2 Active pantoprazole (PROTONIX) 40 mg Tablet, Delayed Release (E.C.) Take 40 mg by mouth daily. 2 Active famotidine (PEPCID) 40 mg tablet Take 40 mg by mouth 2 times daily. Active baclofen (LIORESAL) 10 mg tablet Take by mouth. Activ e Active Problems Problem Noted Date Diagnosed Date Rectocele 10/20/2021 Fecal incontinence 10/20/2021 History of vaginal surgery 10/20/2021 Immunizations Immunization Administration Dates Next Due ([facility] [employer])(12 YR UP) COVID-19 VACCINE - EMERGENCY USE AUTHORIZATION, MRNA, [id number]) 30 MCG/0.3 ML IM SUSP 09/16/2021,11/16/2020,10/25/2020 Social History Tobacco Use Types Packs/Day Years Used Date Smoking Tobacco: Never Smokeless Tobacco: Never Comments No Sex and Gender Information Value Date Recorded Sex Assigned at Not on file Legal Sex Female 3:46 PM PETROLEUM TRANSPORT DRIVER Gender Identity Not on file Sexual Orientation Not on file Last Filed Vital Signs Vital Sign Reading Time Taken Comments Blood Pressure 112/72 03/03/2022 2:05 PM CDT Pulse 82 03/03/2022 2:05 PM CDT Temperature 36.7 C (98.1 F) 03/03/2022 2:05 PM CDT Respiratory Rate 18 10/20/2021 4:06 PM PETROLEUM TRANSPORT DRIVER Oxygen Saturation 99% 03/03/2022 2:05 PM CDT Inhaled Oxygen Concentration - - Weight 54 kg (119 lb) 03/03/2022 2:05 PM CDT Height 162.6 cm (5' 4 ) 03/03/2022 2:05 PM CDT Body Mass Index 20.43 03/03/2022 2:05 PM CDT Plan of Treatment Health Maintenance Due Date Last Done Comments DTAP/TDAP/TD VACCINES (1 - Tdap) 11/05/1999 HEPATITIS B VACCINES (1 of 3 - 19+ 3-dose series) 11/05/1999 HPV/Cotest (21-29) 2001 PAP SMEAR 2001 CERVICAL CANCER SCREENING 2010 HPV/Cotest (30-65) 2010 PAP SMEAR 2010 BREAST CANCER SCREENING 2020 INFLUENZA VACCINE (#1) 2024 COVID-19 Vaccine ( season) 2024 09/16/2021, 11/16/2020, 10/25/2020 HPV VACCINES Aged Out No longer eligi ble based on patient's age to complete this topic Medical Devices Implanted Type Area Insecticide Maker Device Identifier Shelf Expiration Date Model / Serial / Lot Hemostatic Surgiflo 8ml W/ Thrombin [id number] - [id number] Implanted:Qty : 1 on 10/20/2021 by Marilee Reynolds MD at [facility] Hemostatic N/A: Vagina [employer] [id number] 12/13/2022 [id number] / / [id number] Tooth Implant Insurance [employer] MED[employer] RX [id number] Medicaid RX [employer] (INTERNAL) [facility] Internal Plans Advance Directives For more information, please contact: [phone] * Full Code (Latest Code Status on File) Date Activated Date Inactivated Comments 10/20/2021 9:59 AM 10/20/2021 6:11 PM Care Teams Technical Business Analyst Relationship Specialty Start Date End Date Catrina Allen Provider PCP - General 10/14/21
--- OUTSIDE RECORDS SUMMARY | 2024-12-01 13:22 | XMS_ITS | Clinical Summary ---
Author Organization [facility] Address [address] [place] [address] Care Team Providers Care Prosthetic Dentist Name Role Phone Rosie Damon Primary Care [...] into each nostril daily 16 g [address] (CYMBALTA) 20 mg capsuleIndicati [...] 09/06/2023 Recurrent UTI 10/24/2020 Vaginal prolapse 10/24/2020 Surgical History Surgery Date Site/Laterality Comments CHOLECYSTECTOMY BIOPSY LYMPH NODE SUPERFICIAL 10/20/2022 N/A RECTOCELE REPAIR Medical History Medical History Date Comments Constipation Urinary incontinence Thyroid disease Rash Acid reflux Chronic throat clearing Chronic sore throat Family History Medical History Relation Name Comments Allergic rhinitis Mother Hyperlipidemia Mother Hypertension Mother thyroid problems Other sibling Relation Name Status Comments Mother Other sibling Alive Social History Tobacco Use Types Packs/Day Years [...] on file 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 Gender Identity Not on file Sexual Orientation Choose not to disclose 2021 9:52 PM CDT Obstetrics History Last Filed Vital Signs Vital Sign Reading [...] Description 01/09/2025 11:30 AM CDT Hospital Encounter [facility] Operating Room [address] [place] [address] [place] [id number] [address] 01/09/2025 11:30 AM CDT - 01/09/2025 2:30 PM CDT Surgery [facility] Operating Room [address] [place] [address] [place] [id number] [id number] ACCESSORY PAROTIDECTOMY WITH LESS DISECTION-RIGHT/120MI N Scheduled Procedures Name Priority Associated Diagnoses Date/Ti me PAROTIDECTOMY Lesion of parotid gland Accessory parotid gland 01/09/2025 11:30 AM CDT Health Maintenance Due Date Last Done Comments Cervical Cancer Screening 1980 Depression Screening 1980 Hepatitis C Screening 1980 DTaP/Tdap/Td Vaccine (1 - Tdap) 11/05/1991 Varicella Vaccines (1 of 2 - 13+ 2-dose series) 1993 Hepatitis B Screening 1998 Regular Well Visit/Exam 18-64 1998 Breast Cancer Screening-Mammogram 01/03/2025 01/04/2024, 05/25/2022, 02/11/2021 Influenza Vaccine (Season Ended) 2025 06/05/2020 HPV Vaccines Aged Out No longer eligi ble based on patient's age to complete this topic Pneumococcal vaccine <65 Aged Out No longer eligible based on patient's age to complete this topic Insurance [facility]/PPO Address: [address] [address] [place] [address] [facility]/PPO Address: [address] [address] [place] [address] [employer] Advance Directives For more information, please contact: [phone] * Full Code (Latest Code Status on File) Date Activated Date Inactivated Comments 01/13/2024 7:22 AM 01/13/2024 1:06 PM Care Teams Prosthetic Dentist Relationship Specialty Start Date End Date Rosie Damon PA PCP - General Physician Tractor Engine Mechanic 10/09/20
[2024-12-01 14:43] LABS: Free T4 Free Thyroxine 1.15 ng/dL (0.78-2.19); Vitamin D 25 Hydroxy 52.9 ng/mL
== END 2024-12-01 13:18 | disposition home or self-care (01) ==
LOC: ANHLAB 13:20
PROVIDERS: PCP Physician Assistant; Visit Provider Nurse Practitioner
DX: E03.9 Hypothyroidism, unspecified (principal); E55.9 Vitamin D deficiency, unspecified
CPT/HCPCS: 36415; 82306; 84439; 84443